=== PATIENT | male | born 1960 | race Caucasian/White ===

== ENCOUNTER 2021-01-17 01:38 | Day surgery (SDC) | payer BC, SELFPAY ==
[2021-01-04 14:59] VITALS: BMI 33.7
[2021-01-17 10:20] VITALS: BP 105/79; PULSE 61; RESP 16; TEMP 36.4; O2SAT 96; BMI 33.3
[2021-01-17] MEDS: LACTATED RINGERS 1,000 ML 150 ML IV CONT (10:33)
--- NOTE | 2021-01-17 11:09 | WPDANESEPPF ---
Anes - Initial Pre Proc Eval Procedure: Operation Date: 01/17/21 11:30 Proposed Procedures p Screening Colonoscopy - Edis Carpio MD Date/Time: 01/17/21 11:09 Surgeon: Edis Carpio MD Pre Op Diagnosis: neoplasm screening, family hx of colon polyps Patient Data Age: 60 Gender: M Height: 1.68 m Weight: 93.7 kg Last Vital Signs Temp 36.4 C 01/17/21 10:20 Pulse 61 01/17/21 10:20 Resp 16 01/17/21 10:20 BP 105/79 01/17/21 10:20 Pulse Ox 96 01/17/21 10:20 Allergies Allergy/AdvReac Type Severity Reaction Status Date / Time No Known Drug Allergies Allergy Unknown Unknown Verified 01/17/21 10:19 Home Medications Medication Instructions Recorded Confirmed Type lisinopril 40 mg tablet 40 mg PO DAILY #90 tablet 12/20/20 01/17/21 Rx amlodipine 5 mg PO DAILY 01/04/21 01/17/21 History atorvastatin 10 mg PO DAILY 01/04/21 01/17/21 History Patient hx anesthesia problems: none Family hx anesthesia problems: none PMFSH Past Medical History Medical History (Updated 01/16/21 @ 14:24 by Andres Flannery DO) Essential (primary) hypertension Hyperlipidemia Surgical History Surgical History H/O colonoscopy (~12/2011) Family History Family History Mother Family history of lung cancer Patient's mother is , Onset Age: 58 Father Family history of congestive heart failure Family history of cardiovascular disease Social History Social History Smoking packs per day: 1 Smoking cigarettes per day: 20.0 Years smoked: 5 Smoking pack-years: 5.00 Smoking status: Former smoker Tobacco type: cigarettes Smoking end date: 07/08/86 Alcohol intake: current Drinks per week: 6 Substance use: current Substance use type: marijuana Other substance usage details: eatables Last use: 01/01/2021 Living arrangements: with family Spiritual care concerns: No Anes - Eval Final PreProcedure Day of Procedure 07/13/21 11:09 Patient weight: obese Heart: regular rate and rhythm Lungs: clear to auscultation and normal air movement Airway: Mallampati scale class II Neurological: alert and oriented Last oral intake: >/= 8 hours ASA classification: III Emergent: no Anesthetic plan: proceed Anesthesia type and monitoring: general GIVS and standard monitoring Informed Consent: The patient's anesthetic plan and its attendant risks and benefits were discussed with the patient/family/POA. Questions were solicited and answers provided to the satisfaction of the patient/family/POA.
--- NOTE | 2021-01-17 11:18 | WPDGICN ---
Assessment and Plan Assessment and plan (1) Family history of colonic polyps: Code(s): Z83.71 - Family history of colonic polyps Status: Acute Assessment and Plan: Patient presents for screening colonoscopy. Family history is significant as father has had colon polyps. Further recommendations will be given after endoscopy. GI Consult Note Consult date/time: 01/17/21 11:18 HPI: Giovani Seo is a 60 year old male presents for neoplasia screening. Patient reports that his current weight appetite bowel movements are normal. He denies abdominal pain. He has had no bleeding. Family history is significant that his father has had colon polyps. Patient reports that his last colonoscopy was approximately 9 or 10 years ago in 2011. He presents today for follow-up colonoscopy. Review of Systems Review of Systems: All systems reviewed & are unremarkable except as noted in HPI and below PMFSH Past Medical History Medical History (Updated 01/17/21 @ 11:20 by Edis Carpio MD) Essential (primary) hypertension Hyperlipidemia Surgical History Surgical History H/O colonoscopy (~12/2011) Family History Family History Mother Family history of lung cancer Patient's mother is , Onset Age: 58 Father Family history of congestive heart failure Family history of cardiovascular disease Social History Social History Smoking packs per day: 1 Smoking cigarettes per day: 20.0 Years smoked: 5 Smoking pack-years: 5.00 Smoking status: Former smoker Tobacco type: cigarettes Smoking end date: 07/08/86 Alcohol intake: current Drinks per week: 6 Substance use: current Substance use type: marijuana Other substance usage details: eatables Last use: 01/01/2021 Living arrangements: with family Spiritual care concerns: No Meds Home Medications and Allergies Home Medications Medication Instructions Recorded Confirmed Type lisinopril 40 mg tablet 40 mg PO DAILY #90 tablet 12/20/20 01/17/21 Rx amlodipine 5 mg PO DAILY 01/04/21 01/17/21 History atorvastatin 10 mg PO DAILY 01/04/21 01/17/21 History Allergies Allergy/AdvReac Type Severity Reaction Status Date / Time No Known Drug Allergies Allergy Unknown Unknown Verified 01/17/21 10:19 Vital Signs Vital Signs - 24 hr 01/17/21 10:20 Temperature 97.6 F Pulse Rate 61 Respiratory Rate 16 Blood Pressure 105/79 Pulse Oximetry 96 Exam Narrative: Exam Narrative: Physical exam reveals patient be alert. Vital signs stable. HEENT exam is unremarkable. Patient is anicteric. Lungs are clear to auscultation and percussion. Heart is without murmur or extra sounds. Abdominal exam bowel sounds are present soft nontender with no organomegaly. Digital external rectal exam is normal.
[2021-01-17 12:13] VITALS: BP 90/57; PULSE 48; RESP 16; O2SAT 97
[2021-01-17 12:23] VITALS: BP 93/63; PULSE 47; RESP 16; O2SAT 96
[2021-01-17 12:33] VITALS: BP 114/83; PULSE 46; RESP 15; O2SAT 99
== END 2021-01-17 12:43 | disposition home or self-care (01) ==
PROVIDERS: PCP Family Medicine; Visit Provider Internal Medicine Gastroenterology
PROC: 0DJD8ZZ Inspection of Lower Intestinal Tract, Via Natural or Artificial Opening Endoscopic (ICD-10-PCS; CPT 45378; principal; 2021-01-17 11:30)
DX: Z12.11 Encounter for screening for malignant neoplasm of colon (principal); Z83.71 Family history of colonic polyps; K57.30 Diverticulosis of large intestine without perforation or abscess without bleeding; I10 Essential (primary) hypertension; E78.5 Hyperlipidemia, unspecified; Z87.891 Personal history of nicotine dependence; F12.90 Cannabis use, unspecified, uncomplicated; E66.9 Obesity, unspecified; Z68.33 Body mass index [BMI] 33.0-33.9, adult
CPT/HCPCS: 45378; J2704; J7120

== ENCOUNTER 2022-02-19 15:47 | Outpatient (CLI) | payer OTHER, SELFPAY ==
--- NOTE | 2022-02-19 16:03 | ECG_ITS ---
Measurements Intervals Gaffney Rate: 56 P: 40 ND: 152 QRS: 59 QRSD: 81 T: 35 QT: 389 QTc: 376 Interpretive Statements SINUS BRADYCARDIA OTHERWISE NORMAL ECG NO PREVIOUS ECG AVAILABLE FOR COMPARISON Electronically Signed On 02-20-2022 8:46:08 CDT by Ashok Quezada M.D.
[2022-02-19 16:04] LABS: Hemoglobin 14.1 g/dL (14.0-18.0); Mean Corpuscular HGB Conc 35.3 g/dl (32-36); Mean Corpuscular Hemoglobin 30.5 pg (26-34); Mean Corpuscular Volume 86.4 fl (80-100); Mean Platelet Volume 9.1 fl (7.4-10.4); Platelet Count Result 213 k/mm3 (150-375); Red Blood Count 4.63 M/mm3 (4.6-6.20); Red Cell Distribution Width 12.6 % (11.5-14.5); White Blood Count 6.9 K/mm3 (4.5-10.0)
[2022-02-19 16:31] LABS: Appearance Urine Clear (Clear); Bilirubin Urine Negative (Negative); Color Urine Yellow (Yellow); Glucose Urine UA Negative (Negative); Ketones Urine Negative (Negative); Leukocyte Esterase Ur Negative LEU/UL (NEGATIVE); Nitrate Urine Negative (Negative); Protein Urine Negative (Negative); Specific Grav Ur 1.015 (1.001-1.035); Urobilinogen Urine 0.2 mg/dL (<2.0); pH Urine 6.5 (5.0-9.0)
[2022-02-19 16:38] LABS: Add Urine Microscopic? YES; Bacteria Urine Trace /hpf; Blood Urine Trace-Intact (Negative); WBC Urine 0-3 /hpf (0-3)
[2022-02-19 16:51] LABS: Alanine Aminotransferase 24 U/L (6-50); Albumin Level 4.9 g/dL (3.5-5.1); Alkaline Phosphatase 62 U/L (38-126); Anion Gap 11 mmol/L (8-16); Aspartate Amino Transferase 31 U/L (17-59); Bilirubin,Total 0.9 mg/dL (0.2-1.3); Blood Urea Nitrogen 15 mg/dL (9-20); Calcium 8.9 mg/dL (8.4-10.2); Carbon Dioxide 24 mmol/L (22-30); Chloride 93 mmol/L (98-107); Cholesterol 162 mg/dL (0-200); Estimated Glomerular Filt Rate > 60; Glucose 104 mg/dL (65-110); HDL Direct 69 mg/dL; Potassium 4.3 mmol/L (3.4-5.0); Sodium 128 mmol/L (137-145); Triglycerides 122 mg/dL (<150)
[2022-02-19 17:02] LABS: LDL Cholesterol Direct 53 mg/dL
== END 2022-02-19 15:48 | disposition home or self-care (01) ==
LOC: ANHLAB 15:48
PROVIDERS: PCP Family Medicine; Visit Provider Family Medicine
DX: E78.00 Pure hypercholesterolemia, unspecified (principal); Z01.818 Encounter for other preprocedural examination; E87.1 Hypo-osmolality and hyponatremia; I10 Essential (primary) hypertension; Z79.899 Other long term (current) drug therapy
CPT/HCPCS: 36415; 80053; 80061; 81001; 85027; 93005

== ENCOUNTER 2022-08-07 08:05 | Outpatient (CLI) | payer OTHER, SELFPAY ==
[2022-08-07 19:40] LABS: Hematocrit 28.4 % (42.0-52.0); Hemoglobin 13.7 g/dL (14.0-18.0); Mean Corpuscular HGB Conc 48.2 g/dl (32-36); Mean Corpuscular Hemoglobin 45.8 pg (26-34); Mean Platelet Volume 9.6 fl (7.4-10.4); Platelet Count Result 285 k/mm3 (150-375); Red Blood Count 2.99 M/mm3 (4.6-6.20); Red Cell Distribution Width 14.8 % (11.5-14.5); White Blood Count 6.3 K/mm3 (4.5-10.0)
[2022-08-07 19:45] LABS: Alanine Aminotransferase 23 U/L (6-50); Albumin Level 4.4 g/dL (3.5-5.1); Alkaline Phosphatase 81 U/L (38-126); Anion Gap 9 mmol/L (8-16); Aspartate Amino Transferase 35 U/L (17-59); Blood Urea Nitrogen 19 mg/dL (9-20); Calcium 9.6 mg/dL (8.4-10.2); Carbon Dioxide 29 mmol/L (22-30); Chloride 93 mmol/L (98-107); Cholesterol 160 mg/dL (0-200); Estimated Glomerular Filt Rate > 60; Glucose 71 mg/dL (65-110); HDL Direct 54 mg/dL; Potassium 4.5 mmol/L (3.4-5.0); Sodium 131 mmol/L (137-145); Triglycerides 119 mg/dL (<150)
[2022-08-07 19:56] LABS: LDL Cholesterol Direct 66 mg/dL
[2022-08-07 20:13] LABS: Free T4 Free Thyroxine 1.39 ng/mL (0.78-2.19)
[2022-08-07 20:14] LABS: Prostate Specific Antigen 0.8 ng/mL (< OR = 4.0)
== END 2022-08-07 08:06 | disposition home or self-care (01) ==
LOC: ANHGOSHLAB 08:07
PROVIDERS: PCP Family Medicine; Visit Provider Family Medicine
DX: Z51.81 Encounter for therapeutic drug level monitoring (principal); Z79.899 Other long term (current) drug therapy; I10 Essential (primary) hypertension; E78.00 Pure hypercholesterolemia, unspecified; Z12.5 Encounter for screening for malignant neoplasm of prostate
CPT/HCPCS: 36415; 80053; 80061; 84153; 84439; 84443; 85027; G0103

== ENCOUNTER 2022-08-29 08:19 | Outpatient (CLI) | payer OTHER, SELFPAY ==
[2022-08-29 18:50] LABS: Iron 79 ug/dL (49-181)
[2022-08-29 19:00] LABS: Percent Iron Saturation 26 % (20-50)
[2022-08-29 19:03] LABS: Basophils Absolute Auto 0.1 K/mm3 (0.0-0.1); Basophils Percent Auto 0.9 % (0.2-1.2); Eosinophils Absolute Auto 0.2 K/mm3 (0-0.3); Eosinophils Percent Auto 3.8 % (0-4.4); Hematocrit 30.4 % (42.0-52.0); Hemoglobin 13.9 g/dL (14.0-18.0); Immature Granulocyte Absolute 0.01 K/mm3 (0.00-0.031); Immature Granulocyte Percent A 0.2 % (0-0.5); Lymphocytes Absolute Auto 1.51 K/mm3 (0.9-3.2); Lymphocytes Percent Auto 26.1 % (18.3-44.2); Mean Corpuscular HGB Conc 45.7 g/dl (32-36); Mean Corpuscular Hemoglobin 42.4 pg (26-34); Mean Corpuscular Volume 92.7 fl (80-100); Mean Platelet Volume 9.8 fl (7.4-10.4); Monocytes Absolute Auto 0.6 K/mm3 (0.1-0.6); Monocytes Percent Auto 9.7 % (2.6-8.5); Neutrophils Absolute Auto 3.4 K/mm3 (1.3-6.7); Neutrophils Percent Auto 59.3 % (45.5-73.1); Platelet Count Result 266 k/mm3 (150-375); Red Blood Count 3.28 M/mm3 (4.6-6.20); Red Cell Distribution Width 15.1 % (11.5-14.5); White Blood Count 5.8 K/mm3 (4.5-10.0)
== END 2022-08-29 08:20 | disposition home or self-care (01) ==
LOC: ANHGOSHLAB 08:20
PROVIDERS: PCP Family Medicine; Visit Provider Nurse Practitioner
DX: R79.89 Other specified abnormal findings of blood chemistry (principal); E61.1 Iron deficiency
CPT/HCPCS: 36415; 83540; 83550; 85025

== ENCOUNTER 2023-01-24 07:55 | Outpatient (CLI) | payer OTHER, SELFPAY ==
[2023-01-24 13:28] LABS: Hematocrit 27.9 % (42.0-52.0); Hemoglobin 14.6 g/dL (14.0-18.0); Mean Corpuscular HGB Conc 52.3 g/dl (32-36); Mean Corpuscular Hemoglobin 48.8 pg (26-34); Mean Corpuscular Volume 93.3 fl (80-100); Mean Platelet Volume 10.6 fl (7.4-10.4); Platelet Count Result 216 k/mm3 (150-375); Red Blood Count 2.99 M/mm3 (4.6-6.20); Red Cell Distribution Width 13.8 % (11.5-14.5); White Blood Count 5.3 K/mm3 (4.5-10.0)
[2023-01-24 14:10] LABS: Alanine Aminotransferase 27 U/L (6-50); Albumin Level 4.7 g/dL (3.5-5.1); Alkaline Phosphatase 70 U/L (38-126); Anion Gap 8 mmol/L (8-16); Aspartate Amino Transferase 39 U/L (17-59); Bilirubin,Total 1.5 mg/dL (0.2-1.3); Blood Urea Nitrogen 20 mg/dL (9-20); Calcium 9.3 mg/dL (8.4-10.2); Carbon Dioxide 26 mmol/L (22-30); Chloride 98 mmol/L (98-107); Cholesterol 153 mg/dL (0-200); Estimated Glomerular Filt Rate > 60; Glucose 90 mg/dL (65-110); HDL Direct 57 mg/dL; Potassium 4.2 mmol/L (3.4-5.0); Sodium 132 mmol/L (137-145); Triglycerides 93 mg/dL (<150)
[2023-01-24 14:34] LABS: LDL Cholesterol Direct 57 mg/dL
[2023-01-24 14:36] LABS: Free T4 Free Thyroxine 1.52 ng/mL (0.78-2.19)
[2023-01-24 14:41] LABS: Prostate Specific Antigen 0.7 ng/mL (< OR = 4.0)
== END 2023-01-24 07:56 | disposition home or self-care (01) ==
LOC: ANHGOSHLAB 07:58
PROVIDERS: PCP Family Medicine; Visit Provider Family Medicine
DX: E66.9 Obesity, unspecified (principal); E78.00 Pure hypercholesterolemia, unspecified; I10 Essential (primary) hypertension; Z12.5 Encounter for screening for malignant neoplasm of prostate; Z79.899 Other long term (current) drug therapy
CPT/HCPCS: 36415; 80053; 80061; 84153; 84439; 84443; 85027; G0103

== ENCOUNTER 2023-02-05 08:10 | Outpatient (CLI) | payer OTHER, SELFPAY ==
[2023-02-05 18:40] LABS: Hemoglobin 14.7 g/dL (14.0-18.0); Immature Reticulocyte Fraction 5.7 % (3.0-15.9); Mean Corpuscular HGB Conc 34.2 g/dl (32-36); Mean Corpuscular Hemoglobin 31.1 pg (26-34); Mean Corpuscular Volume 91.1 fl (80-100); Mean Platelet Volume 10.4 fl (7.4-10.4); Platelet Count Result 258 k/mm3 (150-375); Red Blood Count 4.72 M/mm3 (4.6-6.20); Red Cell Distribution Width 13.1 % (11.5-14.5); Reticulocyte Hemoglobin Conten 35.3 pg (28.2-35.7); Reticulocyte Percent 1.11 % (0.7-4.3); Reticulocytes Absolute 0.05 M/mm3 (0.02-0.1); White Blood Count 6.5 K/mm3 (4.5-10.0)
[2023-02-05 18:46] LABS: Alanine Aminotransferase 28 U/L (6-50); Albumin Level 4.8 g/dL (3.5-5.1); Alkaline Phosphatase 74 U/L (38-126); Anion Gap 11 mmol/L (8-16); Aspartate Amino Transferase 45 U/L (17-59); Bilirubin Indirect 1.3 mg/dL (0-1.1); Bilirubin,Total 1.4 mg/dL (0.2-1.3); Blood Urea Nitrogen 22 mg/dL (9-20); CRP 0.7 mg/dL (<1.0); Calcium 9.5 mg/dL (8.4-10.2); Carbon Dioxide 27 mmol/L (22-30); Chloride 94 mmol/L (98-107); Cholesterol 179 mg/dL (0-200); Estimated Glomerular Filt Rate > 60; Glucose 92 mg/dL (65-110); HDL Direct 64 mg/dL; Lactate Dehydrogenase 199 U/L (120-246); Potassium 4.6 mmol/L (3.4-5.0); Sodium 132 mmol/L (137-145); Triglycerides 106 mg/dL (<150)
[2023-02-05 18:56] LABS: LDL Cholesterol Direct 76 mg/dL
[2023-02-05 19:10] LABS: Erythrocyte Sedimentation Rate 9 mm/hr (0-20); Iron 139 ug/dL (49-181)
[2023-02-05 19:22] LABS: Percent Iron Saturation 44 % (20-50)
[2023-02-09 08:53] LABS: Haptoglobin 177 mg/dL (43-212)
== END 2023-02-05 08:11 | disposition home or self-care (01) ==
LOC: ANHGOSHLAB 08:13
PROVIDERS: PCP Family Medicine; Visit Provider Family Medicine
DX: D64.9 Anemia, unspecified (principal); R17 Unspecified jaundice; R79.89 Other specified abnormal findings of blood chemistry; Z79.899 Other long term (current) drug therapy; E66.9 Obesity, unspecified; E78.00 Pure hypercholesterolemia, unspecified; I10 Essential (primary) hypertension
CPT/HCPCS: 36415; 80053; 80061; 82248; 82728; 83010; 83540; 83550; 83615; 84443; 85027; 85046; 85652; 86140; 86880

== ENCOUNTER 2023-07-30 08:17 | Outpatient (CLI) | payer OTHER, SELFPAY ==
[2023-07-30 14:22] LABS: Hematocrit 42.9 % (42.0-52.0); Hemoglobin 14.3 g/dL (14.0-18.0); Mean Corpuscular HGB Conc 33.3 g/dl (32-36); Mean Corpuscular Hemoglobin 31.1 pg (26-34); Mean Corpuscular Volume 93.3 fl (80-100); Mean Platelet Volume 10.2 fl (7.4-10.4); Platelet Count Result 234 k/mm3 (150-375); Red Cell Distribution Width 12.8 % (11.5-14.5); White Blood Count 6.3 K/mm3 (4.5-10.0)
[2023-07-30 14:56] LABS: Alanine Aminotransferase 25 U/L (6-50); Albumin Level 4.8 g/dL (3.5-5.1); Alkaline Phosphatase 66 U/L (38-126); Anion Gap 12 mmol/L (8-16); Aspartate Amino Transferase 48 U/L (17-59); Bilirubin,Total 1.4 mg/dL (0.2-1.3); Blood Urea Nitrogen 15 mg/dL (9-20); Calcium 9.5 mg/dL (8.4-10.2); Carbon Dioxide 26 mmol/L (22-30); Chloride 95 mmol/L (98-107); Cholesterol 164 mg/dL (0-200); Estimated Glomerular Filt Rate > 60; Glucose 74 mg/dL (65-110); HDL Direct 72 mg/dL; Potassium 4.2 mmol/L (3.4-5.0); Sodium 133 mmol/L (137-145); Triglycerides 74 mg/dL (<150)
[2023-07-30 15:07] LABS: LDL Cholesterol Direct 71 mg/dL
== END 2023-07-30 08:18 | disposition home or self-care (01) ==
LOC: ANHGOSHLAB 08:20
PROVIDERS: PCP Family Medicine; Visit Provider Family Medicine
DX: D64.9 Anemia, unspecified (principal); I10 Essential (primary) hypertension; E66.9 Obesity, unspecified; Z79.899 Other long term (current) drug therapy; E78.00 Pure hypercholesterolemia, unspecified
CPT/HCPCS: 36415; 80053; 80061; 84443; 85027

== ENCOUNTER 2023-08-15 08:44 | Outpatient (CLI) | payer OTHER, SELFPAY ==
--- NOTE | ~2023-08-15 | US_ITS ---
EXAMINATION: US right upper quadrant DATE: 08/15/2023 08:59 INDICATION: Abnormal liver enzymes TECHNIQUE: Multiple grayscale and Doppler ultrasound images of the abdomen were obtained. COMPARISON: 08/14/2013 FINDINGS: The head and body of the pancreas are normal. The pancreatic tail is obscured by bowel gas. The liver is normal with normal echogenicity and echotexture. No surface nodularity. Normal hepatope mragarita flow in the main portal vein. The gallbladder is normal with no abnormal wall thickening, pericho lecystic fluid or stones. The normal common bile duct measures 3 mm. There was no sonographic Darling sign. IMPRESSION: 1. No sonographic correlate for the patient's symptoms. Reviewed, dictated and finalized at location L. STANT FINANCE DIRECTOR
== END 2023-08-15 08:45 ==
LOC: MICIMG 08:44
PROVIDERS: PCP Family Medicine; Visit Provider Family Medicine
DX: R74.8 Abnormal levels of other serum enzymes (principal); R17 Unspecified jaundice
CPT/HCPCS: 76705

== ENCOUNTER 2023-11-13 14:30 | Outpatient (CLI) | payer OTHER, SELFPAY ==
--- NOTE | ~2023-11-13 | XR_ITS ---
EXAMINATION: XR chest 2V DATE: 11/13/2023 14:57 INDICATION: Wheezing TECHNIQUE: frontal and lateral views of the chest were obtained. COMPARISON: None FINDINGS: The lungs are clear with no focal airspace opacities, pulmonary edema, pleural effusion or pneumothor ax. The cardiomediastinal silhouette is normal. Mild thoracic spondylosis. IMPRESSION: 1. No acute cardiopulmonary disease. Reviewed, dictated and finalized at location A.
== END 2023-11-13 14:31 ==
PROVIDERS: PCP Family Medicine; Visit Provider Emergency Medicine
DX: R06.2 Wheezing (principal); J20.9 Acute bronchitis, unspecified
CPT/HCPCS: 71046

== ENCOUNTER 2023-12-02 10:46 | Emergency (ER) | payer OTHER, SELFPAY ==
--- NOTE | ~2023-12-02 | US_ITS ---
EXAMINATION: US venous doppler LE RT DATE: 12/02/2023 13:45 INDICATION: Right lower limb pain. TECHNIQUE: Grayscale ultrasound images without and with compression and Doppler ultrasound images of the right lower extremity veins were obtained. COMPARISON: None. FINDINGS: The visualized portions of right common femoral vein, profunda (deep) femoral vein, femoral vein, pop liteal vein, peroneal veins, posterior tibial veins, and greater saphenous vein outflow are patent. T here is a small Jamison's cyst. IMPRESSION: 1. No deep venous thrombosis. 2. Small Jamison's cyst. Reviewed, dictated and finalized at location E.
[2023-12-02 11:07] VITALS: BP 135/78; PULSE 67; RESP 16; TEMP 36.7; O2SAT 100
--- NOTE | 2023-12-02 13:19 | ED.EXTPRO ---
HPI - Extremity Problem General Chief complaint: Extremity Problem,Nontraumatic Stated complaint: R leg swelling Time Seen by Provider: 12/02/23 12:15 Source: patient Mode of arrival: ambulatory Limitations: no limitations History of Present Illness HPI Narrative: This is a 63-year-old male who presents to the ED with chief complaint of right ankle swelling and calf pain onset today. Patient reports that he and his been moving and he has been going up and down stairs constantly for the past few days. Does not note any specific trauma or injury or fall. Reports that he has had multiple knee surgeries but the last being several years ago. No recent procedures or hospitalizations. Denies fevers, chills, warmth, rash, numbness, weakness. Related Data Allergies Allergy/AdvReac Type Severity Reaction Status Date / Time No Known Drug Allergies Allergy Unknown Unknown Verified 12/02/23 11:11 Review of Systems Review of Systems: All systems as dictated in HPI PMFSH Past Medical History Medical History Essential (primary) hypertension Hepatitis C antibody test negative (12/27/16) Hyperlipidemia Surgical History Surgical History H/O colonoscopy (~12/2011) Total knee replacement status Family History Family History Mother Family history of lung cancer Patient's mother is , Onset Age: 58 Father Family history of congestive heart failure Family history of cardiovascular disease Social History Social History Smoking packs per day: 1 Smoking cigarettes per day: 20.0 Years smoked: 5 Smoking pack-years: 5.00 Smoking status: Never smoker Tobacco type: cigarettes Smoking end date: 07/08/86 Alcohol intake: current Drinks per week: 6 Substance use: current Substance use type: marijuana Other substance usage details: eatables Last use: 01/01/2021 Lack of Transportation: No Lack of Food: Never True Current Housing: I Have Housing Concerned About Future Housing: No Difficulty Paying Gas/Electric Bills: No Difficulty Paying for Meds: No Currently Unemployed: No Education: Master's Degree or Higher Living arrangements: with family Spiritual care concerns: No Exam Narrative: GENERAL: Well-appearing, well-nourished, and in no acute distress. HEAD: Normocephalic, atraumatic. EYES: PERRLA and EOMI. ENT: Nares clear, no rhinorrhea or epistaxis. Mucous membranes moist. Oropharynx without tonsillar hypertrophy exudate or other lesions. NECK: Supple. No adenopathy or masses. CHEST: No respiratory distress. Clear to auscultation. No wheezes rales or rhonchi HEART: Regular rate and rhythm. No murmur heard. Normal peripheral pulses. ABDOMEN: Soft, nontender, nondistended, normal active bowel sounds. MSK: Mild nonpitting edema noted to the right ankle. Minimal tenderness throughout the right ankle, posterior right leg. Left lower extremity benign SKIN: Warm, dry, no rash. NEURO: Alert and oriented x3. No focal deficits. PSYCH: Normal mood and affect. Course Vital Signs Vital signs: Vital Signs Temperature 98.1 F 12/02/23 11:07 Pulse Rate 67 12/02/23 11:07 Respiratory Rate 16 12/02/23 11:07 Blood Pressure 135/78 12/02/23 11:07 Pulse Oximetry 100 12/02/23 11:07 Oxygen Delivery Room Air 12/02/23 11:07 Temperature 98.1 F 12/02/23 11:07 Pulse Rate 67 12/02/23 11:07 Respiratory Rate 16 12/02/23 11:07 Blood Pressure 135/78 12/02/23 11:07 Pulse Oximetry 100 12/02/23 11:07 Oxygen Delivery Room Air 12/02/23 11:07 MDM - Extremity (Nontraumatic) MDM Narrative Medical decision making narrative: This is a 63-year-old male who presents to the ED with chief complaint of right lower extremity pa
[2023-12-02 13:28] LABS: Basophils Percent Auto 0.6 % (0.2-1.2); Eosinophils Absolute Auto 0.1 K/mm3 (0-0.3); Eosinophils Percent Auto 0.9 % (0-4.4); Hematocrit 42.4 % (42.0-52.0); Hemoglobin 14.3 g/dL (14.0-18.0); Immature Granulocyte Absolute 0.02 K/mm3 (0.00-0.031); Immature Granulocyte Percent A 0.3 % (0-0.5); Lymphocytes Absolute Auto 1.38 K/mm3 (0.9-3.2); Lymphocytes Percent Auto 20.4 % (18.3-44.2); Mean Corpuscular HGB Conc 33.7 g/dl (32-36); Mean Corpuscular Hemoglobin 31.2 pg (26-34); Mean Corpuscular Volume 92.6 fl (80-100); Mean Platelet Volume 9.3 fl (7.4-10.4); Monocytes Absolute Auto 0.6 K/mm3 (0.1-0.6); Monocytes Percent Auto 9.3 % (2.6-8.5); Neutrophils Absolute Auto 4.6 K/mm3 (1.3-6.7); Neutrophils Percent Auto 68.5 % (45.5-73.1); Platelet Count Result 244 k/mm3 (150-375); Red Blood Count 4.58 M/mm3 (4.6-6.20); Red Cell Distribution Width 12.8 % (11.5-14.5); White Blood Count 6.8 K/mm3 (4.5-10.0)
[2023-12-02 13:39] LABS: Alanine Aminotransferase 25 U/L (6-50); Albumin Level 4.7 g/dL (3.5-5.1); Alkaline Phosphatase 76 U/L (38-126); Anion Gap 6 mmol/L (4-12); Aspartate Amino Transferase 38 U/L (17-59); Bilirubin,Total 1.3 mg/dL (0.2-1.3); Blood Urea Nitrogen 18 mg/dL (9-20); Calcium 9.3 mg/dL (8.4-10.2); Carbon Dioxide 29 mmol/L (22-30); Chloride 100 mmol/L (98-107); Estimated CRCL calculation 79 ml/min; Estimated Glomerular Filt Rate > 60; Glucose 100 mg/dL (65-110); Potassium 4.3 mmol/L (3.4-5.0); Sodium 135 mmol/L (137-145)
[2023-12-02 13:48] LABS: Partial Thromboplastin Time 31.4 Seconds (22.3-36.8)
[2023-12-02 13:57] LABS: D Dimer 3.45 ug/mL (<0.48)
== END 2023-12-02 14:19 | disposition home or self-care (01) ==
PROVIDERS: Emergency Provider Physician Assistant; PCP Family Medicine
DX: M71.21 Synovial cyst of popliteal space [Baker], right knee (principal); E78.5 Hyperlipidemia, unspecified; I10 Essential (primary) hypertension; Z96.659 Presence of unspecified artificial knee joint; Z87.891 Personal history of nicotine dependence
CPT/HCPCS: 36415; 80053; 85025; 85380; 85610; 85730; 93971; 99284

== ENCOUNTER 2023-12-17 08:25 | Outpatient (CLI) | payer OTHER, SELFPAY ==
[2023-12-17 13:03] LABS: Hematocrit 41.5 % (42.0-52.0); Hemoglobin 14.3 g/dL (14.0-18.0); Mean Corpuscular HGB Conc 34.5 g/dl (32-36); Mean Corpuscular Hemoglobin 32.6 pg (26-34); Mean Corpuscular Volume 94.5 fl (80-100); Mean Platelet Volume 10.1 fl (7.4-10.4); Platelet Count Result 263 k/mm3 (150-375); Red Blood Count 4.39 M/mm3 (4.6-6.20); Red Cell Distribution Width 12.8 % (11.5-14.5); White Blood Count 6.3 K/mm3 (4.5-10.0)
[2023-12-17 13:18] LABS: Alanine Aminotransferase 56 U/L (6-50); Albumin Level 4.8 g/dL (3.5-5.1); Alkaline Phosphatase 79 U/L (38-126); Anion Gap 10 mmol/L (4-12); Aspartate Amino Transferase 71 U/L (17-59); Bilirubin,Total 1.2 mg/dL (0.2-1.3); Blood Urea Nitrogen 21 mg/dL (9-20); Calcium 9.3 mg/dL (8.4-10.2); Carbon Dioxide 26 mmol/L (22-30); Chloride 96 mmol/L (98-107); Cholesterol 172 mg/dL (0-200); Estimated Glomerular Filt Rate > 60; Glucose 100 mg/dL (65-110); HDL Direct 88 mg/dL; Potassium 4.1 mmol/L (3.4-5.0); Sodium 132 mmol/L (137-145); Triglycerides 56 mg/dL (<150)
[2023-12-17 13:30] LABS: LDL Cholesterol Direct 66 mg/dL
== END 2023-12-17 08:26 | disposition home or self-care (01) ==
LOC: ANHGOSHLAB 08:27
PROVIDERS: PCP Family Medicine; Visit Provider Family Medicine
DX: R74.8 Abnormal levels of other serum enzymes (principal); D64.9 Anemia, unspecified; E22.2 Syndrome of inappropriate secretion of antidiuretic hormone; I10 Essential (primary) hypertension; Z79.899 Other long term (current) drug therapy; E66.9 Obesity, unspecified; E78.00 Pure hypercholesterolemia, unspecified
CPT/HCPCS: 36415; 80053; 80061; 84443; 85027

== ENCOUNTER 2024-04-15 08:03 | Outpatient (CLI) | payer OTHER, SELFPAY ==
[2024-04-15 16:52] LABS: Hematocrit 28.5 % (42.0-52.0); Hemoglobin 14.8 g/dL (14.0-18.0); Mean Corpuscular HGB Conc 51.9 g/dl (32-36); Mean Corpuscular Volume 96.3 fl (80-100); Mean Platelet Volume 10.5 fl (7.4-10.4); Platelet Count Result 208 k/mm3 (150-375); Red Blood Count 2.96 M/mm3 (4.6-6.20); Red Cell Distribution Width 13.3 % (11.5-14.5)
[2024-04-15 16:59] LABS: Alanine Aminotransferase 24 U/L (6-50); Albumin Level 4.8 g/dL (3.5-5.1); Alkaline Phosphatase 66 U/L (38-126); Anion Gap 12 mmol/L (4-12); Aspartate Amino Transferase 43 U/L (17-59); Bilirubin,Total 1.5 mg/dL (0.2-1.3); Blood Urea Nitrogen 21 mg/dL (9-20); Calcium 9.6 mg/dL (8.4-10.2); Carbon Dioxide 25 mmol/L (22-30); Chloride 96 mmol/L (98-107); Cholesterol 182 mg/dL (0-200); Estimated Glomerular Filt Rate > 60; Glucose 81 mg/dL (65-110); HDL Direct 82 mg/dL; Potassium 4.2 mmol/L (3.4-5.0); Sodium 133 mmol/L (137-145); Triglycerides 78 mg/dL (<150)
[2024-04-15 17:13] LABS: LDL Cholesterol Direct 71 mg/dL
== END 2024-04-15 08:04 | disposition home or self-care (01) ==
LOC: ANHGOSHLAB 08:04
PROVIDERS: PCP Family Medicine; Visit Provider Family Medicine
DX: D64.9 Anemia, unspecified (principal); E66.9 Obesity, unspecified; E78.00 Pure hypercholesterolemia, unspecified; I10 Essential (primary) hypertension; R74.8 Abnormal levels of other serum enzymes; Z79.899 Other long term (current) drug therapy; Z12.5 Encounter for screening for malignant neoplasm of prostate
CPT/HCPCS: 36415; 80053; 80061; 84153; 84443; 85027; G0103

== ENCOUNTER 2024-04-29 08:17 | Outpatient (CLI) | payer OTHER, SELFPAY ==
[2024-04-29 13:04] LABS: Hematocrit 40.9 % (42.0-52.0); Hemoglobin 14.5 g/dL (14.0-18.0); Mean Corpuscular HGB Conc 35.5 g/dl (32-36); Mean Corpuscular Hemoglobin 33.6 pg (26-34); Mean Corpuscular Volume 94.9 fl (80-100); Mean Platelet Volume 10.5 fl (7.4-10.4); Platelet Count Result 231 k/mm3 (150-375); Red Blood Count 4.31 M/mm3 (4.6-6.20); White Blood Count 5.2 K/mm3 (4.5-10.0)
== END 2024-04-29 08:18 | disposition home or self-care (01) ==
LOC: ANHGOSHLAB 08:18
PROVIDERS: PCP Family Medicine; Visit Provider Nurse Practitioner
DX: D64.9 Anemia, unspecified (principal)
CPT/HCPCS: 36415; 85027

== ENCOUNTER 2024-05-27 15:50 | Outpatient (CLI) | payer OTHER, SELFPAY ==
--- NOTE | ~2024-05-27 | XR_ITS ---
EXAMINATION: XR thoracic spine 3V DATE: 05/27/2024 16:10 INDICATION: Left-sided back pain. TECHNIQUE: 3 views of thoracic spine were obtained. COMPARISON: None. FINDINGS: There is 7 degrees dextrocurvature of thoracic spine. Vertebral body heights are normal. Th ere is mildly decreased disc height at many levels in thoracic spine. There are endplate osteophytes at most levels. There is severe cervical spondylosis. IMPRESSION: 1. Mild thoracic spondylosis. Reviewed, dictated and finalized at location A. RVES CLERK
== END 2024-05-27 15:51 | disposition home or self-care (01) ==
LOC: GOSHIMG 15:51
PROVIDERS: PCP Family Medicine; Visit Provider Family Medicine
DX: M43.04 Spondylolysis, thoracic region (principal)
CPT/HCPCS: 72072

== ENCOUNTER 2024-11-17 08:33 | Outpatient (CLI) | payer OTHER, SELFPAY ==
--- OUTSIDE RECORDS SUMMARY | 2024-11-17 08:39 | XMS_ITS | Referral Summary ---
Author Organization [facility] Address [address] [place] [address] Care Team Providers Care Carbon Printer Name Role Phone Cara Cordoba DO Primary Care Provider [phone] Don Avila Unavailable [phone] Encounters Date Type Department Care Team Description 10/29/2024 Results [facility] [id number] [place] [phone] Joe Roper MD 10/28/2024 8:16 PM CDT - 10/28/2024 11:59 PM CDT Hospital Encounter [facility] [id number] [place] [id number] Chronic hyponatremia Discharge Disposition: Discharge to home or self care 10/28/2024 3:15 PM CDT Lab [facility] at [address] [phone] Class 1 obesity due to excess calories with serious comorbidity and body mass index (BMI) of 32.0 to 32.9 in adult (Primary Dx) from Last 3 Months Allergies No known active allergies Medications clobetasoL (TEMOVATE) 0.05 % ointmentIndicat ions:Hand eczema Apply topically 2 (two) times a day For thick scaly rash on hands 45 g 6 0 Active triamcinolone (KENALOG) 0.1 % cream 1. Ketoconazole 2% crm, mix w/ TMC apply to rash under armpits as needed, dsp 180gm (90d supply), 1 RF 2. TMC 0.1% crm, mix w/ Ketoconazole crm apply to rash under armpits as needed, dsp 180gm (90d supply) 1 RF 180 g 1 1 Active ketoconazole (NIZORAL) 2 % cream 1. Ketoconazole 2% cream, mix with TMC and apply to rash under arm pits as needed, dsp 180gm (90d supply), 1 RF 2. TMC 0.1% cream, mix with Ketoconazole cream and apply to rash under arm pits as needed, dsp 180 180 g 1 1 Active atorvastatin (LIPITOR) 10 mg tablet Take 1 tablet (10 mg total) by mouth daily 1 Active lisinopriL (PRINIVIL,ZESTR IL) 40 mg tablet Take 1 tablet (40 mg total) by mouth daily 1 Active amLODIPine (NORVASC) 5 mg tablet Take 1 tablet (5 mg total) by mouth daily 2 Active calcipotriene (DOVONOX) 0.005 % creamIndication s:Plaque Psoriasis Apply topically as needed Active fluorouraciL (EFUDEX) 5 % cream Apply topically as needed Active senna-docusate (PERICOLACE) 8.6-50 mg 1-2 times daily as needed for constipation 60 tablet 1 2 Active latanoprost (XALATAN) 0.005 % ophthalmic solution 4 Active amoxicillin (AMOXIL) 500 mg tablet/capsuleI ndications:S/P total knee arthroplasty, right Take 4 tablets by mouth 1 hour prior to dental procedure 4 tablet/capsu le 2 5 Active Active Problems Problem Noted Date Diagnosed Date Class 1 obesity due to exces s calories with serious comorbidity and body mass index (BMI) of 32.0 to 32.9 in adult 03/16/2024 Assessment & Plan (03/23/2024 2:41 PM CDT): Chronic, progressively improving but still above goal Encouraged to keep working on healthy lifestyle habits and include resistance training exercises Primary osteoarthritis of right knee 05/17/2022 Overview (05/17/2022): Added automatically from request for surgery [id number] Chronic hyponatremia 03/02/2022 Assessment & Plan (03/23/2024 2:41 PM CDT): Chronic hyponatremia since many years Stable, Asymptomatic Patient looks euvolemic Most likely suspect SIADH, - advised to limit total free water/ fluid intake per day to no more than 2 liter ( as pt exercising more ) - also strongly advised patient to cut back drinking beers on the weekend Recheck serum sodium levels - follow up on one year Assessment & Plan (11/05/2022 12:08 PM CDT): Chronic hyponatremia since many years Stable, Asymptomatic Patient looks euvolemic Most likely suspect SIADH -- reviewed recent lab results serum sodium levels, serum osmolarity, urine sodium, urine osmolarity - stable, - advised to limit total free water/ fluid intake per day to no more than 2 liter ( as pt exercising more ) - check serum sodium every 3 months - follow up on one year Assessment & Plan (05/11/2022 12:43 PM CDT): Chronic hyponatremia since many years Stable, Asymptomatic Patient looks euvolemic Most likely suspect SIADH - recheck serum sodium levels, serum osmolarity, urine sodium, urine osmolarity - advised to limit total fluid intake per day to no more than 1.5 liter Assessment & Plan (03/02/2022 11:41 AM CDT): Chronic hyponatremia since many years Stable Asymptomatic Patient looks euvolemic Most likely suspect SIADH - check serum sodium levels, serum osmolarity, urine sodium, urine osmolarity Check thyroid function test, baseline cortisol level - recent cholesterol levels and protein levels are normal - advised to limit total fluid intake per day to no more than 1.5 liter - further plans based on lab results - will reach out patient on Saturday Primary osteoarthritis of left knee 02/23/2022 Overview (02/23/2022): Added automatically from request for surgery [id number] Complex tear of medial menis cus of right knee as current injury 01/23/2018 Overview (01/23/2018): Added automatically from request for surgery [id number] Tear of medial meniscus of l eft knee, current, initial encounter 08/23/2017 Overview (08/23/2017): Added automatically from request for surgery [id number] Vitiligo 05/14/2017 Lentigo 02/28/2016 Referred otalgia 11/23/2011 Actinic keratosis 10/25/2010 Social History Tobacco Use Types Packs/Day Years Used Date Smoking Tobacco: Former Cigarettes Smokeless Tobacco: Never Tobacco Cessation:Counseling Given: Not Answered Alcohol Use Standard Drinks/Week Comments Yes 0 (1 standard drink = 0.6 oz pur e alcohol) AUDIT-C Answer Date Recorded Q1: How often do you have a drink containing alc ohol? 2-4 times a month 06/12/2022 Q2: How many drinks containi ng alcohol do you have on a typical day when you are drinking? 3 or 4 06/12/2022 Q3: How often do you have si x or more drinks on one occasion? 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 on file Not on file Not on fi le Last Filed Vital Signs Vital Sign Reading Time Taken Comments Blood Pressure 137/96 07/10/2024 9:22 AM SWAGING MACHINE OPERATOR Pulse 92 07/10/2024 9:22 AM SWAGING MACHINE OPERATOR Temperature 36.6 C (97.9 F) 06/12/2022 3:00 PM SWAGING MACHINE OPERATOR Respiratory Rate 16 03/16/2024 9:29 AM CDT Oxygen Saturation 97% 06/12/2022 3:00 PM SWAGING MACHINE OPERATOR Inhaled Oxygen Concentration - - Weight 96.2 kg (212 lb) 07/10/2024 9:22 AM SWAGING MACHINE OPERATOR Height 167.6 cm (5' 6 ) 07/10/2024 9:22 AM SWAGING MACHINE OPERATOR Body Mass Index 34.22 07/10/2024 9:22 AM SWAGING MACHINE OPERATOR Plan of Treatment Not on file Medical Devices Implanted Type Area Coach Device Identifier Shelf Expiration Date Model / Serial / Lot [employer] Attune 5mm Cruciate Retaining Fix Bearing Knee 6 Insert Tibial [id number] - [id number] Implanted:Qty: 1 on 03/15/2022 by Luisito Gallardo MD at [facility] Left: Knee [employer] 08/07/2026 [id number] / / [id number] [employer] Attune Fb Tib Base Sz 6 Por [id number] - [id number] Implanted:Qty: 1 on 03/15/2022 by Luisito Gallardo MD at [facility] Left: Knee [employer] 07/07/2031 [id number] / / [id number] [employer] Attune Cruciate Retain Cementless Knee Left 6 Component Femoral [id number] - [id number] Implanted:Qty: 1 on 03/15/2022 by Luisito Gallardo MD at [facility] Left: Knee [employer] 03/07/2031 [id number] / / [id number] [employer] Attune Cruciate Retain Cementless Knee Right 6 Component Femoral [id number] - [id number] Implanted:Qty: 1 on 06/12/2022 by Luisito Gallardo MD at [facility] Right: Knee [employer] [id number] 11/05/2031 [id number] / / [id number] [employer] Attune Fb Tib Base Sz 6 Por [id number] - [id number] Implanted:Qty: 1 on 06/12/2022 by Luisito Gallardo MD at [facility] Right: Knee [employer] [id number] 12/06/2031 [id number] / / [id number] Attune Knee System Tibial Insert Fixed Bearing Medial Stabilized Size 6 Right 6 Mm [employer]ox Ref [id number] Implanted:Qty: 1 on 06/12/2022 by Luisito Gallardo MD at [facility] Right: Knee [employer] [id number] 01/05/2032 / / [id number] Procedures Procedure Name Priority Date/Time Associated Diagnosis Comments SODIUM LEVEL Routine 10/28/2024 12:00 PM CDT Chronic hyponatremia from Last 3 Months Results * (ABNORMAL) Sodium level (10/28/2024 12:00 PM CDT) Sodium 132(L) 135 - 145 mmol/L Blood 10/28/2024 12:0 0 PM CDT 10/28/2024 8:27 PM CDT us Kwabenaja Kannan Brunenr MD LAB BLOOD ORDERABLE S Final Result [facility] [id number] Department [place] [address] from Last 3 Months Insurance [facility] [employer] Address: [address] [place] [address] [employer] Address: [facility] [id number] [place] [address] Care Teams Carbon Printer Relationship Specialty Start Date End Date Cara Cordoba DO PCP - General Family Medicine 11/23/21 Don Avila PA [address] [place] [address] [place] [address] Physician Communications Specialist Orthopedic Surgery 03/15/22
--- OUTSIDE RECORDS SUMMARY | 2024-11-17 08:39 | XMS_ITS | Clinical Summary ---
[facility] Address [address] [place] [address] Care Team Providers Care Budget Clerk Name Role Phone Cara Cordoba DO Primary Care Provider [phone] Don Avila Unavailable [phone] Allergies No known active allergies Medications clobetasoL [...] (05/17/2022): Added automatically from request for surgery [id number] Chronic hyponatremia 03/02/2022 Assessment & Plan (03/23/2024 [...] (02/23/2022): Added automatically from request for surgery [id number] Complex tear of medial menis cus of right knee as current injury 01/23/2018 Overview (01/23/2018): Added automatically from request for surgery [id number] Tear of medial meniscus of l eft knee, current, initial encounter 08/23/2017 Overview (08/23/2017): Added automatically from request for surgery [id number] Vitiligo 05/14/2017 Lentigo 02/28/2016 Referred otalgia 11/23/2011 Actinic keratosis 10/25/2010 Encounters Date Type Department Care Team Description 10/29/2024 Results [facility] [address] [phone] Joe Roper MD 10/28/2024 8:16 PM CDT - 10/28/2024 11:59 PM CDT Hospital Encounter [facility] [address] [place] [address] Chronic hyponatremia Discharge Disposition: Discharge to home or self care 10/28/2024 3:15 PM CDT Lab [facility] Outpatient Lab at [address] [phone] Class 1 obesity due to excess calories with serious comorbidity and body mass index (BMI) of 32.0 to 32.9 in adult (Primary Dx) from Last 3 Months Surgical History Surgery Date Site/Laterality Comments COLONOSCOPY TOOTH EXTRACTION 01/20/18 currently on Antibiotic KNEE ARTHROSCOPY W/ LATERAL RELEASE 09/2017 right knee; 01/2018 left knee KNEE ARTHROPLASTY Left JOINT REPLACEMENT left 03/15/2022; right 06/12/2022 Medical History Medical History Date Comments Hypertension Hyperlipidemia Chronic hyponatremia Obesity (BMI 30.0-34.9) Primary osteoarthritis of both knees Family History Medical History Relation Name Comments Cancer Father Rober Seo Cancer Mother Krissy Seo Heart disease Neg Hx Hypertension Neg Hx Relation Name Status Comments Father Rober Seo Mother Krissy Seo Social History Tobacco Use Types Packs/Day Years [...] on file Legal Sex Male 4:55 AM DIRECTOR OF REHABILITATION Gender Identity Not on file Sexual Orientation Not on file 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 on file Not on file Not on fi le Obstetrics History Last Filed Vital Signs Vital Sign Reading Time Taken Comments Blood Pressure 137/96 07/10/2024 9:22 AM DIRECTOR OF REHABILITATION Pulse 92 07/10/2024 9:22 AM DIRECTOR OF REHABILITATION Temperature 36.6 C (97.9 F) 06/12/2022 3:00 PM DIRECTOR OF REHABILITATION Respiratory Rate 16 03/16/2024 9:29 AM CDT Oxygen Saturation 97% 06/12/2022 3:00 PM DIRECTOR OF REHABILITATION Inhaled Oxygen Concentration - - Weight 96.2 kg (212 lb) 07/10/2024 9:22 AM DIRECTOR OF REHABILITATION Height 167.6 cm (5' 6 ) 07/10/2024 9:22 AM DIRECTOR OF REHABILITATION Body Mass Index 34.22 07/10/2024 9:22 AM DIRECTOR OF REHABILITATION Plan of Treatment Health Maintenance Due Date Last Done Comments Colon Cancer Screening-Colonoscopy 1961 Hepatitis C Screening 1961 Prostate Cancer Screening-PSA 1961 Hepatitis B Screening 11/21/1979 Regular Well Visit/Exam 18-64 11/21/1979 DTaP/Tdap/Td Vaccine (1 - Tdap) 06/19/2003 06/18/2003 Zoster Vaccine (1 of 2) 11/21/2011 Covid-19 Vaccine (5 - season) 2024 11/02/2021, 05/10/2021, 09/26/2020, Additional history exists Influenza Vaccine (Season Ended) 2025 04/10/2021, 03/17/2020, 04/22/2019, Additional history exists Depression Screening 03/16/2025 03/16/2024, 05/11/2022, 03/02/2022 Pneumococcal vaccine <65 Aged Out No longer eligible based on patient's age to complete this topic Medical Devices Implanted Type Area Research Management Associate Device Identifier Shelf Expiration Date Model / Serial / Lot [employer] Attune 5mm Cruciate Retaining Fix Bearing Knee 6 Insert Tibial [id number] - [id number] Implanted:Qty: 1 on 03/15/2022 by Luisito Gallardo MD at [facility] Left: Knee [employer] 08/07/2026 [id number] / / [id number] [employer] Attune Fb Tib Base Sz 6 Por [id number] - [id number] Implanted:Qty: 1 on 03/15/2022 by Luisito Gallardo MD at [facility] Left: Knee [employer] 07/07/2031 [id number] / / [id number] [employer] Attune Cruciate Retain Cementless Knee Left 6 Component Femoral [id number] - [id number] Implanted:Qty: 1 on 03/15/2022 by Luisito Gallardo MD at [facility] Left: Knee [employer] 03/07/2031 [id number] / / [id number] [employer] Attune Cruciate Retain Cementless Knee Right 6 Component Femoral [id number] - [id number] Implanted:Qty: 1 on 06/12/2022 by Luisito Gallardo MD at [facility] Right: Knee [employer] [id number] 11/05/2031 [id number] / / [id number] [employer] Attune Fb Tib Base Sz 6 Por [id number] - [id number] Implanted:Qty: 1 on 06/12/2022 by Luisito Gallardo MD at [facility] Right: Knee [employer] [id number] 12/06/2031 [id number] / / [id number] Attune Knee System Tibial Insert Fixed Bearing Medial Stabilized Size 6 Right 6 Mm Aox Ref 1520-20-606 Implanted:Qty: 1 on 06/12/2022 by Luisito Gallardo MD at [facility] Right: Knee [employer] [id number] 01/05/2032 / / [id number] Procedures Procedure Name Priority Date/Time Associated Diagnosis Comments SODIUM LEVEL Routine 10/28/2024 12:00 PM CDT Chronic hyponatremia from Last 3 Months Results * (ABNORMAL) Sodium level (10/28/2024 12:00 PM CDT) Sodium 132(L) 135 - 145 mmol/L Blood 10/28/2024 12:0 0 PM CDT 10/28/2024 8:27 PM CDT Joe Brunner MD LAB [place]LOOD [place] [id number] [address] [place] [address] from Last 3 Months Insurance [facility] AETNA SIGNATURE [employer]IGNA CIGNA Care Teams Budget Clerk Relationship Specialty Start Date End Date Cara Cordoba DO PCP - General Family Medicine 11/23/21 Don Avila PA [address] [facility] [address] [address] Physician Wheelage Clerk Orthopedic Surgery 03/15/22
--- OUTSIDE RECORDS SUMMARY | 2024-11-17 08:39 | XMS_ITS | Encounter Summary ---
Author Organization [facility] Healthcare Address [address] [place] [address] Care Team Providers Care Dressmaker Or Tailor Name Role Phone Cara Cordoba DO Primary Care Provider [phone]- [phone] Don Avila PA Unavailable [phone] Encounter Details Date Type Department Care Team (Late st Contact Info) Description 10/29/2024 Results Follow-Up [facility] [id number] [place] [phone] [place] [id number] [address] Social History Tobacco Use Types Packs/Day Years Used Date Smoking Tobacco: Former Cigarettes Smokeless Tobacco: Never Alcohol Use Standard Drinks/Week Comments Yes 0 [...] on file 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 Gender Identity Not on file Sexual Orientation Not on file 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
[2024-11-17 13:11] LABS: Hematocrit 40.6 % (42.0-52.0); Hemoglobin 14.4 g/dL (14.0-18.0); Mean Corpuscular HGB Conc 35.5 g/dl (32-36); Mean Corpuscular Hemoglobin 33.6 pg (26-34); Mean Corpuscular Volume 94.9 fl (80-100); Mean Platelet Volume 10.6 fl (7.4-10.4); Platelet Count Result 218 k/mm3 (150-375); Red Blood Count 4.28 M/mm3 (4.6-6.20); Red Cell Distribution Width 12.6 % (11.5-14.5); White Blood Count 5.2 K/mm3 (4.5-10.0)
[2024-11-17 13:55] LABS: Alanine Aminotransferase 25 U/L (6-50); Albumin Level 4.8 g/dL (3.5-5.1); Alkaline Phosphatase 74 U/L (38-126); Anion Gap 12 mmol/L (4-12); Aspartate Amino Transferase 48 U/L (17-59); Bilirubin,Total 1.3 mg/dL (0.2-1.3); Blood Urea Nitrogen 19 mg/dL (9-20); Calcium 9.2 mg/dL (8.4-10.2); Carbon Dioxide 25 mmol/L (22-30); Chloride 95 mmol/L (98-107); Cholesterol 198 mg/dL (0-200); Estimated Glomerular Filt Rate > 60; Glucose 79 mg/dL (65-110); HDL Direct 83 mg/dL; Potassium 4.5 mmol/L (3.4-5.0); Sodium 132 mmol/L (137-145); Triglycerides 115 mg/dL (<150)
[2024-11-17 14:08] LABS: LDL Cholesterol Direct 70 mg/dL
[2024-11-17 14:21] LABS: Iron 144 ug/dL (49-181)
[2024-11-17 14:56] LABS: Percent Iron Saturation 51 % (20-50)
[2024-11-17 15:03] LABS: Folic Acid 6.1 ng/mL (2.76->20)
== END 2024-11-17 08:34 | disposition home or self-care (01) ==
LOC: ANHGOSHLAB 08:33
PROVIDERS: PCP Family Medicine; Visit Provider Family Medicine
DX: D64.9 Anemia, unspecified (principal); I10 Essential (primary) hypertension; E78.00 Pure hypercholesterolemia, unspecified; R74.8 Abnormal levels of other serum enzymes; E66.9 Obesity, unspecified; R79.89 Other specified abnormal findings of blood chemistry
CPT/HCPCS: 36415; 80053; 80061; 82607; 82728; 82746; 83540; 83550; 84443; 85027

== ENCOUNTER 2025-01-23 17:57 | Emergency (ER) | payer OTHER, SELFPAY ==
--- NOTE | ~2025-01-23 | CT_ITS ---
Non-contrast CT scan of the Abdomen and Pelvis Clinical indication: Abdominal pain Technique: 2.5 mm axial scans were obtained through the abdomen and pelvis without intravenous or or al contrast. Dose reduction technique was used on this scan by utilizing automated exposure control a nd iterative reconstruction technique. The dose-length product (DLP) was 942.20 mGy-cm. Findings: Images through the lung bases reveal no abnormalities. There is no evidence of renal or ureteral calculi. The kidneys and the ureters are nondilated. The liver, spleen, pancreas, gallbladder, and adrenals appear normal. There is no aortic aneurysm. There is no evidence of bowel obstruction. Images through the pelvis were performed. There is no evidence of ascites or lymphadenopathy. Urinary bladder unremarkable. Prostate gland is mildly enlarged. There is mild asymmetric prominence of the right seminal vesicle. Impression: Asymmetric prominence of the right seminal vesicle. Mass lesion not completely excluded. Consider add itional workup as indicated. No other significant findings. Reviewed, dictated and finalized at [facility]. Impression: Asymmetric prominence of the right seminal vesicle. Mass lesion not completely excluded. Consider additional workup as indicated. No other significant findings.
--- OUTSIDE RECORDS SUMMARY | 2025-01-23 18:01 | XMS_ITS | Referral Summary ---
Author Organization [facility] Medical Office Building B Address [address] [place] [address] Care Team Providers Care Demand Planner Name Role Phone Cara Cordoba DO Primary Care Provider [phone]- [phone] Don Avila PA Unavailable [phone] Encounters Date Type Department Care Team Description 10/29/2024 Results Follow-Up [facility] [address] [place] [phone] Joe Roper MD Sodium level 10/28/2024 8:16 PM CDT - 10/28/2024 11:59 PM CDT Hospital Encounter [facility] [address] [place] [address] Chronic hyponatremia Discharge Disposition: Discharge to home or self care 10/28/2024 3:15 PM CDT Lab [facility] Outpatient Lab at [address] [phone] Class 1 obesity due to excess calories [...] (05/17/2022): Added automatically from request for surgery [id number] Chronic hyponatremia 03/02/2022 Assessment & Plan (03/23/2024 [...] (02/23/2022): Added automatically from request for surgery [id number] Complex tear of medial menis cus of right knee as current injury 01/23/2018 Overview (01/23/2018): Added automatically from request for surgery [id number] Tear of medial meniscus of l eft knee, current, initial encounter 08/23/2017 Overview (08/23/2017): Added automatically from request for surgery [id number] Vitiligo 05/14/2017 Lentigo 02/28/2016 Referred otalgia 11/23/2011 [...] on file Legal Sex Male 4:55 AM BUGGY RUNNER Gender Identity Not on file Sexual Orientation Not on file 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 Not on file Not on fi le Last Filed Vital Signs Vital Sign Reading Time Taken Comments Blood Pressure 137/96 07/10/2024 9:22 AM BUGGY RUNNER Pulse 92 07/10/2024 9:22 AM BUGGY RUNNER Temperature 36.6 C (97.9 F) 06/12/2022 3:00 PM BUGGY RUNNER Respiratory Rate 16 03/16/2024 9:29 AM CDT Oxygen Saturation 97% 06/12/2022 3:00 PM BUGGY RUNNER Inhaled Oxygen Concentration - - Weight 96.2 kg (212 lb) 07/10/2024 9:22 AM BUGGY RUNNER Height 167.6 cm (5' 6) 07/10/2024 9:22 AM BUGGY RUNNER Body Mass Index 34.22 07/10/2024 9:22 AM BUGGY RUNNER Plan of Treatment Not on file Medical Devices Implanted Type Area Internal Grinder Set Up Operator Device Identifier Shelf Expiration Date Model / Serial / Lot [employer] Attune 5mm Cruciate Retaining Fix Bearing Knee 6 Insert Tibial [id number] - [id number] Implanted:Qty: 1 on 03/15/2022 by Luisito Gallardo MD at [facility] Left: Knee [employer] 08/07/2026 [id number] / / [id number] [employer] Attune Fb Tib Base Sz 6 Por [id number] - [id number] Implanted:Qty: 1 on 03/15/2022 by Luisito Gallardo MD at [facility] Left: Knee [employer] 07/07/2031 [id number] / / [id number] [employer] Attune Cruciate Retain Cementless Knee Left 6 Component Femoral [id number] - [id number] Implanted:Qty: 1 on 03/15/2022 by Luisito Gallardo MD at [facility] Left: Knee [employer] 03/07/2031 [id number] / / [id number] [employer] Attune Cruciate Retain Cementless Knee Right 6 Component Femoral [id number] - [id number] Implanted:Qty: 1 on 06/12/2022 by Luisito Gallardo MD at [facility] Right: Knee [employer] [id number] 11/05/2031 [id number] / / [id number] [employer] Attune Fb Tib Base Sz 6 Por [id number] - [id number] Implanted:Qty: 1 on 06/12/2022 by Luisito Gallardo MD at [facility] Right: Knee [employer] [id number] 12/06/2031 [id number] / / [id number] Attune Knee System Tibial Insert Fixed Bearing Medial Stabilized Size 6 Right 6 Mm Aox Ref 1520-20-606 Implanted:Qty: 1 on 06/12/2022 by Luisito Gallardo MD at [facility] Right: Knee [employer] [id number] 01/05/2032 / / [id number] Procedures Procedure Name Priority Date/Time Associated Diagnosis Comments SODIUM LEVEL Routine 10/28/2024 12:00 PM CDT Chronic hyponatremia from Last 3 Months Results * (ABNORMAL) Sodium level (10/28/2024 12:00 PM CDT) Sodium 132(L) 135 - 145 mmol/L Blood 10/28/2024 12:0 0 PM CDT 10/28/2024 8:27 PM CDT us Kwabenaja Kannan Brunner MD LAB BLOOD [place] [id number] [address] Department [place] [address] from Last 3 Months Insurance [facility] AETNA SIGNATURE [employer] Address: [facility] [id number] [place] [address] [employer] Address: [facility] [id number] [place] [address] Care Teams Demand Planner Relationship Specialty Start Date End Date Cara Cordoba DO PCP - General Family Medicine 11/23/21 Don Avila PA [address] [place] [address] [place] [address] Physician Airplane Fueler Orthopedic Surgery 03/15/22
--- OUTSIDE RECORDS SUMMARY | 2025-01-23 18:01 | XMS_ITS | Continuity of Care Document ---
Author Organization [employer] Address [address] [place] [address] [address] [place] [address] Phone Care Team Providers Care Railroad Repairer Name Role Phone Ca PT,MPT,ATC, Seferino Unavailable Unavai lable Procedures Procedure Date Therapeutic Activities Neuromuscular Re-Ed Therapeutic Exercise Therapeutic Activities Neuromuscular Re-Ed Therapeutic Exercise Doc neg elder mal no plan PT Re-evaluation Therapeutic Activities Neuromuscular Re-Ed Therapeutic Activities Neuromuscular Re-Ed Manual Therapy Therapeutic Activities Neuromuscular Re-Ed Manual Therapy Therapeutic Activities Neuromuscular Re-Ed Manual Therapy Therapeutic Activities Neuromuscular Re-Ed Manual Therapy Doc neg elder mal no plan PT Evaluation Moderate Complexity Therapeutic Activities Neuromuscular Re-Ed PT Re-evaluation Therapeutic Activities Neuromuscular Re-Ed Therapeutic Exercise Therapeutic Activities Neuromuscular Re-Ed Therapeutic Exercise Therapeutic Activities Neuromuscular Re-Ed Therapeutic Exercise Therapeutic Activities Neuromuscular Re-Ed Therapeutic Exercise Therapeutic Activities Neuromuscular Re-Ed Therapeutic Exercise Therapeutic Activities Neuromuscular Re-Ed Therapeutic Exercise Therapeutic Activities Neuromuscular Re-Ed Therapeutic Exercise Therapeutic Activities Neuromuscular Re-Ed Therapeutic Exercise Therapeutic Activities Neuromuscular Re-Ed Therapeutic Exercise Therapeutic Activities Neuromuscular Re-Ed Therapeutic Exercise Therapeutic Activities Neuromuscular Re-Ed Therapeutic Exercise Manual Therapy Therapeutic Activities Neuromuscular Re-Ed Therapeutic Exercise Manual Therapy Therapeutic Activities Neuromuscular Re-Ed Therapeutic Exercise Manual Therapy Progress Note Therapeutic Activities Neuromuscular Re-Ed Therapeutic Exercise Manual Therapy Therapeutic Activities Neuromuscular Re-Ed Therapeutic Exercise Manual Therapy Therapeutic Activities Neuromuscular Re-Ed Therapeutic Exercise Manual Therapy Therapeutic Activities Neuromuscular Re-Ed Therapeutic Exercise Manual Therapy Therapeutic Activities Neuromuscular Re-Ed Therapeutic Exercise Manual Therapy Therapeutic Activities Neuromuscular Re-Ed Therapeutic Exercise Manual Therapy Therapeutic Activities Neuromuscular Re-Ed Therapeutic Exercise Manual Therapy Therapeutic Activities Neuromuscular Re-Ed Therapeutic Exercise Manual Therapy Therapeutic Activities Neuromuscular Re-Ed Therapeutic Exercise Manual Therapy Therapeutic Activities Neuromuscular Re-Ed Therapeutic Exercise Manual Therapy PT Evaluation Moderate Complexity Neuromuscular Re-Ed Therapeutic Exercise Manual Therapy Hot or Cold Pack Therapeutic Activities Neuromuscular Re-Ed Therapeutic Exercise Therapeutic Activities Neuromuscular Re-Ed Therapeutic Exercise Therapeutic Activities Neuromuscular Re-Ed Therapeutic Exercise Therapeutic Activities Neuromuscular Re-Ed Therapeutic Exercise Therapeutic Activities Neuromuscular Re-Ed Therapeutic Exercise Therapeutic Activities Neuromuscular Re-Ed Therapeutic Exercise Manual Therapy Therapeutic Activities Neuromuscular Re-Ed Therapeutic Exercise Manual Therapy Therapeutic Activities Neuromuscular Re-Ed Therapeutic Exercise Manual Therapy Therapeutic Activities Neuromuscular Re-Ed Therapeutic Exercise Manual Therapy Therapeutic Activities Neuromuscular Re-Ed Therapeutic Exercise Manual Therapy Therapeutic Activities Neuromuscular Re-Ed Therapeutic Exercise Manual Therapy PT Re-evaluation Therapeutic Activities Neuromuscular Re-Ed Therapeutic Exercise Manual Therapy Therapeutic Activities Neuromuscular Re-Ed Therapeutic Exercise Manual Therapy Therapeutic Activities Neuromuscular Re-Ed Therapeutic Exercise Manual Therapy Neuromuscular Re-Ed Therapeutic Exercise Manual Therapy Therapeutic Activities Therapeutic Activities Therapeutic Exercise Manual Therapy Therapeutic Activities Manual Therapy Therapeutic Exercise Therapeutic Activities Therapeutic Exercise Manual Therapy Therapeutic Activities Manual Therapy Therapeutic Exercise Therapeutic Activities Manual Therapy Therapeutic Exercise Therapeutic Activities Manual Therapy Therapeutic Exercise Therapeutic Exercise Manual Therapy Therapeutic Activities PT Evaluation Moderate Complexity Therapeutic Exercise Therapeutic Activities Therapeutic Activities Neuromuscular Re-Ed Therapeutic Exercise Therapeutic Activities Neuromuscular Re-Ed Manual Therapy Therapeutic Exercise Neuromuscular Re-Ed Therapeutic Activities Therapeutic Exercise Manual Therapy Neuromuscular Re-Ed Therapeutic Activities Therapeutic Exercise Manual Therapy Therapeutic Activities Neuromuscular Re-Ed Therapeutic Exercise Manual Therapy PT Evaluation Moderate Complexity Therapeutic Activities Therapeutic Exercise Therapeutic Exercise Neuromuscular Re-Ed Therapeutic Exercise Neuromuscular Re-Ed Therapeutic Exercise Therapeutic Exercise Therapeutic Exercise Neuromuscular Re-Ed Therapeutic Exercise Neuromuscular Re-Ed Therapeutic Exercise Neuromuscular Re-Ed PT Evaluation Moderate Complexity Therapeutic Exercise Manual Therapy PT Evaluation Low Complexity Therapeutic Exercise Neuromuscular Re-Ed Screening Screening Advance Directives Directive Yes / No Effective Date File Name No Information Encounters Encounter Description Practice Location Reason(s) For Visit Diagnoses Date Provider Providers Copied on Encounter [facility], [place], [place], [id number], tel:[phone] [place] No Information 5 [place], . Referring Provider: Earl Blankenship [address], [place], [address]. tel:[phone] [facility], [place], [place], [address], tel:[phone] [place] No Information 5 Corrie Rsut. . Referring Provider: Earl Blankenship, [address], [place], [address]. tel:[phone] [facility], [place], [place], [address], [place] tel:[phone] [place] No Information 5 Corrie Rust. . Referring Provider: Earl Blankenship, [address], [place], [address]. tel:[phone] [facility], [place], [place], [address], [place] tel:[phone] [place] No Information 5 Ca Seferino. , [place], [place]. Referring Provider: Earl Blankenship, [address], [place], [address]. tel:[phone] [facility], [place], [place], [address], [place] tel:[phone] [place] No Information 4 Ca Seferino. , [place], [place]. Referring Provider: Access [employer]. [facility], [place], [place], [address], [place] tel:[phone] [place] No Information 4 Ca Sef[place]. , [place]. Referring Provider: [employer]. [facility], [place], [place], [address], [place] tel:[phone] [place] No Information 4 Ca Sef[place]. , [place]. Referring Provider: [employer]. [facility], [place], [place], [address], [place] tel:[phone] [place] No Information 4 Roby Samsonn. , [place], [place]. Referring Provider: [employer]. [facility], [place], [place], [address], [place] tel:[phone] [place] No Information 4 Roby Samsonn. , [place], [place]. Referring Provider: [employer]. [facility], [place], [place], [address], [place] tel:[phone] [place] No Information 3 Roby Borjas , [place], [place]. Referring Provider: Luisito Gallardo, 4 [facility] [address], [place], [address]. tel:[phone] [facility], [address], [place], [place], [address], [place] tel:[phone] [place] No Information 3 Roby Borjas , [place], [place]. Referring Provider: Luisito Gallardo, [address] [facility] [address], [place], [address]. tel:[phone] [facility], [address], [place], [place], [address], [place] tel:[phone] [place] No Information 3 Roby Borjas , [place], [place]. Referring Provider: Luisito Gallardo, 4 [facility] [address] [facility] [address], [place], [address]. tel:[phone] [facility], [place], [place], [address], [place] tel:[phone] [place] No Information 3 Roby Borjas , [place], [place]. Referring Provider: Luisito Gallardo, 4 [facility] [address] [facility] [address], [place], [address]. tel:[phone] [facility], [place], [place], [address], [place] tel:[phone] [place] No Information 3 Roby Borjas , [place], [place]. Referring Provider: Luisito Gallardo, 4 [facility] [address], [place], [address]. tel:[phone] [facility], [place], [place], [address], [place] tel:[phone] [place] No Information 3 Roby Borjas , [place], [place]. Referring Provider: Luisito Gallardo, [address] [facility] [address], [place], [address]. tel:[phone] [facility], [address], [place], [place], [address], [place] tel:[phone] [place] No Information 0 3 Roby Borjas , [place], [place]. Referring Provider: Luisito Gallardo, 4 [facility] [address] [facility] [address], [place], [address]. tel:[phone] [facility], [address], [place], [address], [place] tel:[phone] [place] No Information 0 3 Roby Borjas , [place], [place]. Referring Provider: Luisito Gallardo, 4 [facility] [address] [facility] [address], [place], [address]. tel:[phone] [facility], [address], [place], [place], [address], [place] tel:[phone] [place] No Information 0 3 Rowena Godinez. . Referring Provider: Luisito Gallardo, 4 [facility] [address] [facility] [address], [place], [address]. tel:[phone] [facility], [place], [place], [address], [place] tel:[phone] [place] No Information 0 3 Roby Borjas , [place], [place]. Referring Provider: Luisito Gallardo, 4 [facility] [address] [facility] [address], [place], [address]. tel:[phone] [facility], [address], [place], [place], [address], [place] tel:[phone] [place] No Information 3 Roby Borjas , [place], [place]. Referring Provider: Luisito Gallardo, 4 [facility] [address] [facility] [address], [place], [address]. tel:[phone] [facility], [place], [place], [address], [place] tel:[phone] [place] No Information 3 Roby Gentile , [place], [place]. Referring Provider: Luisito Gallardo, 4 [facility] [address] [facility] [address], [place], [address]. tel:[phone] [facility], [address], [place], [place], [address], [place] tel:[phone] [place] No Information 3 Roby Gentile , [place], [place]. Referring Provider: Luisito Gallardo, 4 [facility] [address] [facility] [address], [place], [address]. tel:[phone] [facility], [address], [place], [place], [address], [place] tel:[phone] [place] No Information 3 Roby Gentile , [place], [place]. Referring Provider: Luisito Gallardo, 4 [facility] [address] [facility] [address], [place], [address]. tel:[phone] [facility], [address], [place], [address], [place] tel:[phone] [place] No Information 3 Roby Gentile , [place], [place]. Referring Provider: Luisito Gallardo, 4 [facility] [address] [facility] [address], [place], [address]. tel:[phone] [facility] [address], [place], [place], [address], [place] tel:[phone] [place] No Information 3 Rowena Godinez. . Referring Provider: Luisito Gallardo, 4 [facility] [address] [facility] [address], [place], [address]. tel:[phone] [facility], [place], [address], [place] tel:[phone] [place] No Information 3 Rowena Godinez. . Referring Provider: Luisito Gallardo, 4 [facility] [address], [place], [address]. tel:[phone] [facility], [address], [place], [address], [place] tel:[phone] [place] No Information 3 [place], . Referring Provider: Luisito Gallardo, 4 [facility] [address] [facility] [address], [place], [address]. tel:[phone] [facility], [address], [place], [place], [address], [place] tel:[phone] [place] No Information 2 Keithn Herbert. . Referring Provider: Luisito Gallardo, 4 [facility] [address] [facility] [address], [place], [address]. tel:[phone] [facility], [address], [place], [place], [address], [place] tel:[phone] [place] No Information 2 Keithn Herbert. . Referring Provider: Luisito Gallardo, 4 [facility] [address] [facility] [address], [place], [address]. tel:[phone] [facility], [place], [place], [address], [place] tel:[phone] [place] No Information 2 Rowena Godinez. . Referring Provider: Luisito Gallardo, 4 [facility] [address] [facility] [address], [place], [address]. tel:[phone] [facility], [address], [place], [place], [address], [place] tel:[phone] [place] No Information 2 Keithn Herbert. . Referring Provider: Luisito Gallardo, 4 [facility] [address] [facility] [address], [place], [address]. tel:[phone] [facility], [place], [place], [address], [place] tel:[phone] [place] No Information Jun- 2 Klahn Herbert. . Referring Provider: Luisito Gallardo, 4 [facility] [address], [place], [address]. tel:[phone] [facility], [address], [place], [place], [address], [place] tel:[phone] [place] No Information Jun- 2 Maria Fernanda Rosen. [address] [facility], [address], [place], [address], [place]. tel:[phone] Referring Provider: Luisito Gallardo, 4 [facility] [address], [place], [address]. tel:[phone] [facility], [address], [place], [place], [address], [place] tel:[phone] [place] No Information 3 2 Klahn Herbert. . Referring Provider: Luisito Gallardo, 4 [facility] [address], [place], [address]. tel:[phone] [facility], [address], [place], [place], [address], [place] tel:[phone] [place] No Information 2 Klahn Herbert. . Referring Provider: Luisito Gallardo, 4 [facility] [address] [facility] [address], [place], [address]. tel:[phone] [facility], [place], [place], [address], [place] tel:[phone] [place] No Information Nov-2 2 Klahn Herbert. . Referring Provider: Luisito Gallardo, 4 [facility] [address], [place], [address]. tel:[phone] [facility], [address], [place], [place], [address], [place] tel:[phone] [place] No Information Nov-2 2 Klahn Herbert. . Referring Provider: Luisito Gallardo, 4 [facility] [address], [place], [address]. tel:[phone] [facility], [address], [place], [place], [address], [place] tel:[phone] [place] No Information 2 Roby Gentile. , [place], [place]. Referring Provider: Luisito Gallardo, [address] [facility] [address], [place], [address]. tel:[phone] [facility], [address], [place], [place], [address], [place] tel:[phone] [place] No Information 2 Roby Gentile. , [place], [place]. Referring Provider: Luisito Gallardo, 4 [facility] [address], [place], [address]. tel:[phone] [facility], [address], [place], [place], [address], [place] tel:[phone] [place] No Information Nov-0 2 Roby Gentile. , [place], [place]. Referring Provider: Luisito Gallardo, [address] [facility] [address], [place], [address]. tel:[phone] [facility], [address], [place], [place], [address], [place] tel:[phone] [place] No Information Nov0 2 Roby Samsonn. , [place], [place]. Referring Provider: Luisito Gallardo, [address] [facility] [address], [place], [address]. tel:[phone] [facility], [address], [place], [place], [address], [place] tel:[phone] [place] No Information Nov-0 2 Roby Gentile. , [place], [place]. Referring Provider: Luisito Gallardo, [address] [facility] [address], [place], [address]. tel:[phone] [facility], [address], [place], [place], [address], [place] tel:[phone] [place] No Information 2 Roby Gentile. , [place], [place]. Referring Provider: Luisito Gallardo, 4 [facility] [address] [facility] [address], [place], [address]. tel:[phone] [facility], [place], [place], [address], [place] tel:[phone] [place] No Information 2 Roby Gentile. , [place], [place]. Referring Provider: Luisito Gallardo, 4 [facility] [address] [facility] [address], [place], [address]. tel:[phone] [place] [address], [address], [place], [place], [address], [place] tel:[phone] [place] No Information 2 Roby Gentile. , [place], [place]. Referring Provider: Luisito Gallardo, 4 [facility] [address] [facility] [address], [place], [address]. tel:[phone] [facility], [address], [place], [place], [address], [place] tel:[phone] [place] No Information 2 Roby Gentile. , [place], [place]. Referring Provider: Luisito Gallardo, 4 [facility] [address] [facility] [address], [place], [address]. tel:[phone] [facility], [place], [place], [address], [place] tel:[phone] [place] No Information 2 Roby Gentile. , [place], [place]. Referring Provider: Luisito Gallardo, 4 [facility] [address], [place], [address]. tel:[phone] [facility], [address], [place], [place], [address], [place] tel:[phone] [place] No Information Apr-07 09- 2 Ca Seferino. , [place], [place]. Referring Provider: Luisito Gallardo, 4 [facility] [address] [facility] [address], [place], [address]. tel:[phone] [facility], [address], [place], [place], [address], [place] tel:[phone] [place] No Information Oct-1 0 2 Ca Seferino. , [place], [place]. Referring Provider: Luisito Gallardo, 4 [facility] [address] [facility] [address], [place], [address]. tel:[phone] [facility] [address], [place], [place], [address], [place] tel:[phone] [place] No Information Oct-0 2 [facility] , [place], [place]. Referring Provider: Luisito Gallardo, 4 [facility] [address] [facility] [address], [place], [address]. tel:[phone] [facility], [address], [place], [place], [address], [place] tel:[phone] [place] No Information Oct-0 2 [facility]. , [place], [place]. Referring Provider: Luisito Gallardo, 4 [facility] [address] [facility] [address], [place], [address]. tel:[phone] [facility] [address], [place], [place], [address], [place] tel:[phone] [place] No Information Sep-2 2 [facility] , [place], [place]. Referring Provider: Luisito Gallardo, 4 [facility] [address] [facility] [address], [place], [address]. tel:[phone] [facility] [address], [place], [place], [address], [place] tel:[phone] [place] No Information Sep-2 2 [facility] , [place], [place]. Referring Provider: Luisito Gallardo, 4 [facility] [address] [facility] [address], [place], [address]. tel:[phone] [facility], [address], [place], [place], [address], [place] tel:[phone] [place] No Information Sep-2 2 Rowena Godinez. . Referring Provider: Luisito Gallardo, 4 [facility] [address], [place], [address]. tel:[phone] [facility], [address], [place], [place], [address], [place] tel:[phone] [place] No Information Sep-1 2 Rowena Godinez. . Referring Provider: Luisito Gallardo, 4 [facility] [address] [facility] [address], [place], [address]. tel:[phone] [facility], [address], [place], [place], [address], [place] tel:[phone] [place] No Information Sep- 2 Rowena Godinez. . Referring Provider: Luisito Gallardo, 4 [facility] [address], [place], [address]. tel:[phone] [facility], [place], [place], [address], [place] tel:[phone] [place] No Information Benny-3 2 [place], [place]. Referring Provider: Vick Quiñones, [facility]1 [facility], [place], [address]. tel:[phone] [facility], [address], [place], [place], [address], [place] tel:[phone] [place] No Information Dec-2 2 [place]. Referring Provider: Vick Quiñones, [address] [facility], [place], [address]. tel:[phone] [facility], [address], [place], [place], [address], [place] tel:[phone] [place] No Information 2 Ca Seferino. , [place], [place]. Referring Provider: Vick Quiñones, [address] [facility] [address], [place], [address]. tel:[phone] [facility], [place], [place], [address], [place] tel:[phone] [place] No Information 2 Ca Seferino. , [place], [place]. Referring Provider: Vick Quiñones, [address] [facility] [address], [place], [address]. tel:[phone] [facility], [address], [place], [place], [address], [place] tel:[phone] [place] No Information 2 Ca Seferino. , [place], [place]. Referring Provider: Vick Quiñones, [address] [facility] [address], [place], [address]. tel:[phone] [facility], [place], [place], [address], [place] tel:[phone] [place] No Information 2 Ca Seferino. , [place], [place]. Referring Provider: Vick Quiñones, [address] [facility] [address], [place], [address]. tel:[phone] [facility], [place], [address], [place] tel:[phone] [place] Pain in right kneeStiffness of right knee, not elsewhere classifiedOth symptoms and signs involving the musculoskelet al systemOther abnormalities of gait and mobilityOther specified postprocedura l states 0 8 Ca Seferino. , [place], [place]. [facility], [place], [place], [address], [place] tel:[phone] [place] Pain in right kneeStiffness of right knee, not elsewhere classifiedOth symptoms and signs involving the musculoskelet al systemOther abnormalities of gait and mobilityOther specified postprocedura l states 8 Ca Seferino. , [place], [place]. [facility], [place], [place], [address], [place] tel:[phone] [place] Pain in right kneeStiffness of right knee, not elsewhere classifiedOth symptoms and signs involving the musculoskelet al systemOther abnormalities of gait and mobilityOther specified postprocedura l states 8 Roby Borjas [place], [place]. [facility], [place], [place], [address], [place] tel:[phone] [id number] [place] Pain in right kneeStiffness of right knee, not elsewhere classifiedOth symptoms and signs involving the musculoskelet al systemOther abnormalities of gait and mobilityOther specified postprocedura l states 8 Beatriz Roger. . [facility], [place], [place], [id number], [place] tel:[phone] [place] Pain in right kneeStiffness of right knee, not elsewhere classifiedOth symptoms and signs involving the musculoskelet al systemOther abnormalities of gait and mobilityOther specified postprocedura l states 8 Roby Gentile. , [place], [place]. [facility], [place], [place], [id number], [place] tel:[phone] [place] Pain in right kneeStiffness of right knee, not elsewhere classifiedOth symptoms and signs involving the musculoskelet al systemOther abnormalities of gait and mobilityOther specified postprocedura l states 8 Roby Gentile. , [place], [place]. [facility], [place], [place], [id number], [place] tel:[phone] [place] Pain in right kneeStiffness of right knee, not elsewhere classifiedOth symptoms and signs involving the musculoskelet al systemOther abnormalities of gait and mobilityOther specified postprocedura l states 8 Roby Borjas , [place], [place]. [facility], [place], [place], [id number], [place] tel:[phone] [place] Pain in right kneeStiffness of right knee, not elsewhere classifiedOth symptoms and signs involving the musculoskelet al systemOther abnormalities of gait and mobilityOther specified postprocedura l states 0 8 Threlkeld Rema. . [facility], [place], [place], [id number], tel:[phone] [place] Encounter for other specified aftercareUnsp tear of unsp meniscus, current injury, left knee, subsPain in left knee 8 [place], [place]. [facility], [place], [place], [id number], tel:[phone] [place] No Information 7 [place], . Referring Provider: Physician Screen. [facility], [place], [place], [id number], tel:[phone] [place] No Diagnosis 7 [place], . Referring Provider: Physician Screen. Family History Family Member Type Diagnosis Age At Onset No Information Payers Payer name Insurance type Covered republican ID Authoriza tion(s) No Information Social History Type Description Quantity Date Captured Comments Sex Male Smoking Status No Information Chief Complaint And Reason For Visit No Information Reason For Referral Reason For Referral No Information History Of Present Illness Encounter Date Complaint History Of Prese nt Illness No Information Functional Status Date Functional Assessmen t No Information Instructions Date Instruction Additional Infor mation Giving encouragement to exercise Related to Overweight Giving encouragement to exercise Related to Overweight Giving encouragement to exercise Related to Overweight Giving encouragement to exercise Related to Overweight Giving encouragement to exercise Related to Overweight Giving encouragement to exercise Related to Overweight Giving encouragement to exercise Related to Overweight Giving encouragement to exercise Related to Overweight Giving encouragement to exercise Related to Overweight Giving encouragement to exercise Related to Overweight Giving encouragement to exercise Related to Overweight Giving encouragement to exercise Related to Overweight Giving encouragement to exercise Related to Overweight Giving encouragement to exercise Related to Overweight Assessments Type Assessment Date No Information Patient Care Teams Name Effective Dates (start - stop) Status Members No Information
--- OUTSIDE RECORDS SUMMARY | 2025-01-23 18:01 | XMS_ITS | Clinical Summary ---
Author Organization [facility] Address [address] [place] [address] Care Team Providers Care Java Groovy Developer Name Role Phone Cara Cordoba DO Primary Care Provider [phone] Don Avila Unavailable [phone] Allergies No known active allergies Medications clobetasoL [...] (05/17/2022): Added automatically from request for surgery [id number] Chronic hyponatremia 03/02/2022 Assessment & Plan (03/23/2024 [...] (02/23/2022): Added automatically from request for surgery [id number] Complex tear of medial menis cus of right knee as current injury 01/23/2018 Overview (01/23/2018): Added automatically from request for surgery [id number] Tear of medial meniscus of l eft knee, current, initial encounter 08/23/2017 Overview (08/23/2017): Added automatically from request for surgery [id number] Vitiligo 05/14/2017 Lentigo 02/28/2016 Referred otalgia 11/23/2011 Actinic keratosis 10/25/2010 Encounters Date Type Department Care Team Description 10/29/2024 Results Follow-Up [facility] Specialists of [address] [phone] Joe Roper MD Sodium level 10/28/2024 8:16 PM CDT - 10/28/2024 11:59 PM CDT Hospital Encounter [facility] [address] [place] [address] Chronic hyponatremia Discharge Disposition: Discharge to home or self care 10/28/2024 3:15 PM CDT Lab [facility] Outpatient Lab at [address] [address] Class 1 obesity due to [...] on file Legal Sex Male 4:55 AM COMBUSTION ANALYST Gender Identity Not on file Sexual Orientation Not on file 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 Not on file Not on fi le Obstetrics History Last Filed Vital Signs Vital Sign Reading Time Taken Comments Blood Pressure 137/96 07/10/2024 9:22 AM COMBUSTION ANALYST Pulse 92 07/10/2024 9:22 AM COMBUSTION ANALYST Temperature 36.6 C (97.9 F) 06/12/2022 3:00 PM COMBUSTION ANALYST Respiratory Rate 16 03/16/2024 9:29 AM CDT Oxygen Saturation 97% 06/12/2022 3:00 PM COMBUSTION ANALYST Inhaled Oxygen Concentration - - Weight 96.2 kg (212 lb) 07/10/2024 9:22 AM COMBUSTION ANALYST Height 167.6 cm (5' 6) 07/10/2024 9:22 AM COMBUSTION ANALYST Body Mass Index 34.22 07/10/2024 9:22 AM COMBUSTION ANALYST Plan of Treatment Health Maintenance Due Date Last Done Comments Colon Cancer Screening-Colonoscopy 1961 Hepatitis C Screening 1961 Prostate Cancer Screening-PSA 1961 Hepatitis B Screening 11/21/1979 Regular Well Visit/Exam 18-64 11/21/1979 DTaP/Tdap/Td Vaccine (1 - Tdap) 06/19/2003 06/18/2003 Zoster Vaccine (1 of 2) 11/21/2011 Covid-19 Vaccine ( season) 2024 11/02/2021, 05/10/2021, 09/26/2020, Additional history exists Influenza Vaccine (Season Ended) 2025 04/10/2021, 03/17/2020, 04/22/2019, Additional history exists Depression Screening 03/16/2025 03/16/2024, 05/11/2022, 03/02/2022 Pneumococcal vaccine <65 Aged Out No longer eligible based on patient's age to complete this topic Medical Devices Implanted Type Area Adult School Counselor Device Identifier Shelf Expiration Date Model / Serial / Lot Depuy [employer] Attune 5mm Cruciate Retaining Fix Bearing Knee 6 Insert Tibial [id number] - [id number] Implanted:Qty: 1 on 03/15/2022 by Luisito Gallardo MD at [facility] Left: Knee [employer] 08/07/2026 [id number] / / [id number] [employer] Attune Fb Tib Base Sz 6 Por [id number] - [id number] Implanted:Qty: 1 on 03/15/2022 by Luisito Gallardo MD at [facility] Left: Knee [employer] 07/07/2031 [id number] / / [id number] [employer] Attune Cruciate Retain Cementless Knee Left 6 Component Femoral [id number] - [id number] Implanted:Qty: 1 on 03/15/2022 by Luisito Gallardo MD at [facility] Left: Knee [employer] 03/07/2031 [id number] / / [id number] [employer] Attune Cruciate Retain Cementless Knee Right 6 Component Femoral [id number] - [id number] Implanted:Qty: 1 on 06/12/2022 by Luisito Gallardo MD at [facility] Right: Knee [employer] [id number] 11/05/2031 [id number] / / [id number] [employer] Attune Fb Tib Base Sz 6 Por [id number] - [id number] Implanted:Qty: 1 on 06/12/2022 by Luisito Gallardo MD at [facility] Right: Knee [employer] [id number] 12/06/2031 [id number] / / [id number] Attune Knee System Tibial Insert Fixed Bearing Medial Stabilized Size 6 Right 6 Mm Aox Ref [id number] Implanted:Qty: 1 on 06/12/2022 by Luisito Gallardo MD at [facility] Right: Knee [employer] [id number] 01/05/2032 / / [id number] Procedures Procedure Name Priority Date/Time Associated Diagnosis Comments SODIUM LEVEL Routine 10/28/2024 12:00 PM CDT Chronic hyponatremia from Last 3 Months Results * (ABNORMAL) Sodium level (10/28/2024 12:00 PM CDT) Sodium 132(L) 135 - 145 mmol/L Blood 10/28/2024 12:0 0 PM CDT 10/28/2024 8:27 PM CDT us Joe Brunner MD LAB [place]LOOD [place] [id number] [address] Department [place] [address] from Last 3 Months Insurance [facility] AETNA SIGNATURE CIGNA CIGNA Care Teams Java Groovy Developer Relationship Specialty Start Date End Date Cara Cordoba DO PCP - General Family Medicine 11/23/21 Don Avila PA [address] [facility] [address] [place] [address] Physician Low Heel Builder Orthopedic Surgery 03/15/22
--- OUTSIDE RECORDS SUMMARY | 2025-01-23 18:01 | XMS_ITS | Continuity of Care Document ---
Author Organization [facility] Address [address] [place] [address] Phone Care Team Providers Care Polls Or Surveys Interviewer Name Role Phone Vick Gallo MD Unavailable Unavailable Allergies, Adverse Reactions, Alerts Substance Reaction Status Criticality No Known Allergies Active No Inform ation Medications Medication Instructions Dosage Effective Dates (start - stop) Status Comments No Drug Therapy Prescribed Procedures Procedure Date X-ray exam ankle, minimum 3 views Office[facility]outpatient [facility] 2014 Advance Directives Directive Yes / No Effective Date File Name No Information Encounters Encounter Description Practice Location Reason(s) For Visit Diagnoses Date Provider Providers Copied on Encounter [facility], [address], [id number], tel:[phone] [facility] No Information 5 Sabino Hickman. [address] [facility], [address], [id number] , [place]. tel:[phone] Office/outpat ient visit,[facility], [address], [id number], tel:[phone] [facility] JOINT PAIN-ANKLEAch illes bursitis or tendinitis 0 5 Sabino Hickman. [address] [facility], [address], [id number] , [place]. tel: [phone] Family History Family Member Type Diagnosis Age At Onset Father Problem (finding) malignant neoplasm of l jaylan Mother Problem (finding) malignant neoplasm of l jaylan Payers Payer name Insurance type Covered libertarian ID Authorfabio win(s) Uriel Blue Cross Blue Shiel d [place] BL [id number] Social History Type Description Quantity Date Captured Comments Alcohol Use Details Unknown Caffeine Use Details Unknown Tobacco Use Status No Information Smoking Status No Information Sex Male Chief Complaint And Reason For Visit No Information Reason For Referral Reason For Referral No Information Plan Of Treatment Date Type Action Status Referral Ordered: X-ray exam ankle, minimum 3 views RT ordered History Of Present Illness Encounter Date Complaint History Of Prese nt Illness No Information Functional Status Date Functional Assessmen t No Information Medications Administered Medication Instructions Dosage Effective Dates (start - stop) Status Comments No Drug Therapy Prescribed Instructions Date Instruction Additional Infor mation No Information Assessments Type Assessment Date No Information Patient Care Teams Name Effective Dates (start - stop) Status Members No Information
[2025-01-23 18:10] VITALS: BP 136/90; PULSE 64; RESP 20; TEMP 36.3; O2SAT 99
[2025-01-23 19:56] VITALS: BP 142/92; PULSE 55; RESP 16; O2SAT 99
--- NOTE | 2025-01-23 20:13 | ED_ITS ---
HPI - Abdominal Pain General Chief Complaint: Abdominal Pain Stated Complaint: bloated for a couple of months Time Seen by Provider: 01/23/25 20:02 Source: patient, family and RN notes reviewed Mode of arrival: ambulatory Limitations: no limitations History of Present Illness HPI narrative: 64 y/o WM in the ED for c/o abd pain and constipation X4 days. Pt states he has had constipation since November. Went to PCP and given Miralax and Metamucil. Pt endorses increasing difficulty with BMS. Pt states only having a small hard BM this am. Pt endorses some nausea, gas and abd pain as bowels continue to move. Pt taking gasX with some relief. Pt denies vomiting, CP, SOB, dysuria, fevers, chills. Pt denies blood in the stool when he does have a BM. Related Data Home Medications ?Medication ?Instructions ?Recorded ?Confirmed ?Last Taken ?Type latanoprost 0.005 % eye drops drp EACH EYE DAILY 04/20/24 11/24/24 Unknown History timolol 0.5 % eye drops 1 drp EACH EYE Q12H 11/04/24 11/24/24 Unknown History Allergies Allergy/AdvReac Type Severity Reaction Status Date / Time No Known Drug Allergies Allergy Unknown Unknown Verified 01/23/25 18:14 Review of Systems Review of Systems: All systems reviewed & are unremarkable except as noted in HPI and below PMFSH Past Medical History Medical History Hepatitis C antibody test negative (12/27/16) Hyperlipidemia Essential (primary) hypertension Surgical History Surgical History Total knee replacement status H/O colonoscopy (~12/2011) Family History Family History Mother Family history of lung cancer Patient's mother is , Onset Age: 58 Father Family history of congestive heart failure Family history of cardiovascular disease Social History Social History Social History: Caffeine-Coffee Smoking packs per day: 1 Smoking cigarettes per day: 20.0 Years smoked: 5 Smoking pack-years: 5.00 Smoking status: Never smoker Tobacco type: cigarettes Smoking end date: 07/08/86 Alcohol intake: current Drinks per week: 6 Substance use: current Substance use type: marijuana Other substance usage details: eatables Do You Feel Safe in your Home?: Yes Lack of Transportation: No Lack of Food: Never True Current Housing: I Have Housing Concerned About Future Housing: No Difficulty Paying Gas/Electric Bills: No Difficulty Paying for Meds: No Currently Unemployed: No Education: Master's Degree or Higher Living arrangements: with family Spiritual care concerns: No Exam Const: General: healthy appearing, no acute distress and alert Nutritional Appearance: well nourished Orientation/consciousness: patient oriented x3 Limitations: no limitations HENMT: Head: normal to inspection Eyes: Pupils: Equal, round and reactive pupils present EOM: EOMs intact bilaterally Neck: Neck: normal visual inspection and no lymphadenopathy Chest: Chest palpation & inspection: normal inspection of the chest Resp: Effort & Inspection: normal respiratory effort Auscultation: clear to auscultation bilaterally Cardio: Rate: regular rate Rhythm: regular rhythm GI: GI Palp: Yes Soft to palpation Auscultation: Hyperactive bowel sounds present : General: Yes bladder normal to palpation Skin: General skin exam: normal color Rashes: no rashes Wounds: no wounds Neuro: General: patient oriented x3 and moves all extremities Speech: normal speech Gait exam (Neuro): Normal gait present Extrem: General: normal to inspection Psych: Mental Status: mental status grossly normal Affect: normal affect Attitude: cooperative Course Vital Signs Vital signs: Vital Signs Temperature 36.3 C L 01/23/25 18:10 Pulse Rate 64 01/23/25 18:10 Respiratory Rate 20 01/23/25 18:10 Blood Pressure 136/90 01/23/25 18:10 Pulse Oximetry 99 01/23/25 18:10 Oxygen Delivery Room Air 01/23/25 18:10 Temperature 36.3 C L 01/23/25 18:10 Pulse Rate 55 L 01/23/25 19:56 Respiratory Rate 16 01/23/25 19:56 Blood Pressure 142/92 H 01/23/25 19:56 Pulse Oximetry 99 01/23/25 19:56 Oxygen Delivery Room Air 01/23/25 19:56 MDM - Abdominal Pain MDM Narrative Medical decision making narrative: CBC unremarkable, showing no signs of infection white count normal. CT abdomen and pelvis shows no sign of obstruction. Patient to be released with instructions on medications to assist defecation. Patient requesting to take medication at home. Differential Diagnosis Differential diagnosis: Likely abdominal pain, calculus of kidney, constipation, diverticulitis, gastroenteritis and small bowel obstruction Medical Records Attestation: I reviewed the patient's medical records. Lab Data Attestation: I reviewed the patient's lab results. Imaging Data Radiologist's impression: ITS Impressions Abdomen/Pelvis CT 01/23/25 22:03 Impression: Asymmetric prominence of the right seminal vesicle. Mass lesion not completely excluded. Consider additional workup as indicated. No other significant findings. Discharge Plan Discharge Clinical Impression: Constipation Qualifiers: Constipation type: unspecified constipation type Qualified Code(s): K59.00 - Constipation, unspecified Patient Disposition: Home Condition: Stable Instructions: Antibiotic Form, Constipation (ED), Abdominal Pain (ED) Additional Instructions: You may take magnesium citrate [id number] to help with bowel movements. If that does not work you may try Dulcolax Suppository or Fleet's enema. Be sure to hydrate and follow up with primary care Patient Language: Filipino Prescriptions: No Action timolol 0.5 % drops 1 drp EACH EYE Q12H latanoprost 0.005 % drops EACH EYE DAILY amlodipine 5 mg tablet See Rx Instructions .ROUTE .COMPLEX Qty: 90 1RF Dose Instruction: TAKE ONE TABLET BY MOUTH EVERY DAY Rx Instructions: TAKE ONE TABLET BY MOUTH EVERY DAY lisinopril 40 mg tablet See Rx Instructions .ROUTE .COMPLEX Qty: 90 1RF Dose Instruction: TAKE ONE TABLET BY MOUTH EVERY DAY Rx Instructions: TAKE ONE TABLET BY MOUTH EVERY DAY atorvastatin 10 mg tablet See Rx Instructions .ROUTE .COMPLEX Qty: 90 1RF Dose Instruction: TAKE ONE TABLET BY MOUTH EVERY EVENING AT BEDTIME Rx Instructions: TAKE ONE TABLET BY MOUTH EVERY EVENING AT BEDTIME Follow-up/Referrals: Cara Cordoba DO [Primary Care Provider] - 1 Week
[2025-01-23 20:17] LABS: Hematocrit 41.9 % (42.0-52.0); Hemoglobin 15.0 g/dL (14.0-18.0); Immature Granulocyte Percent A 0.1 % (0-0.5); Lymphocytes Absolute Auto 2.37 K/mm3 (0.9-3.2); Mean Corpuscular HGB Conc 35.8 g/dl (32-36); Mean Corpuscular Hemoglobin 31.8 pg (26-34); Mean Corpuscular Volume 88.8 fl (80-100); Nucleated Red Blood Cells Absolute Auto 0.000 K/mm3 (0.0-0.012); Nucleated Red Blood Cells Perc 0.0 % (0.0-0.2); Platelet Count Result 212 k/mm3 (150-375); Red Blood Count 4.72 M/mm3 (4.6-6.20); White Blood Count 7.1 K/mm3 (4.5-10.0)
[2025-01-23 20:27] LABS: Alanine Aminotransferase 26 U/L (6-50); Albumin Level 4.8 g/dL (3.5-5.1); Alkaline Phosphatase 62 U/L (38-126); Anion Gap 10 mmol/L (4-12); Aspartate Amino Transferase 38 U/L (17-59); Bilirubin,Total 2.2 mg/dL (0.2-1.3); Blood Urea Nitrogen 12 mg/dL (9-20); Calcium 9.7 mg/dL (8.4-10.2); Carbon Dioxide 24 mmol/L (22-30); Chloride 96 mmol/L (98-107); Estimated CRCL calculation 79 ml/min; Estimated Glomerular Filt Rate > 60; Glucose 84 mg/dL (65-110); Lipase 77 U/L (23-300); Potassium 4.0 mmol/L (3.4-5.0); Sodium 130 mmol/L (137-145); Total Protein 8.3 g/dL (6.3-8.2)
--- OUTSIDE RECORDS SUMMARY | 2025-01-23 20:54 | XMS_ITS | Referral Summary ---
Author Organization [facility] Medical Office Building B Address [address] [place] [address] Care Team Providers Care Director Enterprise Data Architecture Name Role Phone Cara Cordoba DO Primary Care Provider [phone] Don Avila PA Unavailable [phone] Encounters Date Type Department Care Team Description 10/29/2024 Results Follow-Up [facility] Specialists [facility] [id number] [place] [phone] Joe Roper MD Sodium level 10/28/2024 8:16 PM CDT - 10/28/2024 11:59 PM CDT Hospital Encounter [facility] [id number] [place] [address] Chronic hyponatremia Discharge Disposition: Discharge to home or self care 10/28/2024 3:15 PM CDT Lab [facility] Outpatient Lab at [address] [phone] Class 1 obesity due to excess calories [...] (05/17/2022): Added automatically from request for surgery [id number] Chronic hyponatremia 03/02/2022 Assessment & Plan (03/23/2024 [...] (02/23/2022): Added automatically from request for surgery [id number] Complex tear of medial menis cus of right knee as current injury 01/23/2018 Overview (01/23/2018): Added automatically from request for surgery [id number] Tear of medial meniscus of l eft knee, current, initial encounter 08/23/2017 Overview (08/23/2017): Added automatically from request for surgery [id number] Vitiligo 05/14/2017 Lentigo 02/28/2016 Referred otalgia 11/23/2011 [...] on file Legal Sex Male 4:55 AM CONSOLIDATOR Gender Identity Not on file Sexual Orientation Not on file 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 Not on file Not on fi le Last Filed Vital Signs Vital Sign Reading Time Taken Comments Blood Pressure 137/96 07/10/2024 9:22 AM CONSOLIDATOR Pulse 92 07/10/2024 9:22 AM CONSOLIDATOR Temperature 36.6 C (97.9 F) 06/12/2022 3:00 PM CONSOLIDATOR Respiratory Rate 16 03/16/2024 9:29 AM CDT Oxygen Saturation 97% 06/12/2022 3:00 PM CONSOLIDATOR Inhaled Oxygen Concentration - - Weight 96.2 kg (212 lb) 07/10/2024 9:22 AM CONSOLIDATOR Height 167.6 cm (5' 6) 07/10/2024 9:22 AM CONSOLIDATOR Body Mass Index 34.22 07/10/2024 9:22 AM CONSOLIDATOR Plan of Treatment Not on file Medical Devices Implanted Type Area Cpr Instructor Device Identifier Shelf Expiration Date Model / Serial / Lot Depuy [employer] Attune 5mm Cruciate Retaining Fix Bearing Knee 6 Insert Tibial [id number] - [id number] Implanted:Qty: 1 on 03/15/2022 by Luisito Gallardo MD at [facility] Left: Knee [employer] 08/07/2026 [id number] / / [id number] [employer] Attune Fb Tib Base Sz 6 Por [id number] - [id number] Implanted:Qty: 1 on 03/15/2022 by Luisito Gallardo MD at [facility] Left: Knee [employer] 07/07/2031 [id number] / / [id number] [employer] Attune Cruciate Retain Cementless Knee Left 6 Component Femoral [id number] - [id number] Implanted:Qty: 1 on 03/15/2022 by Luiisto Gallardo MD at [facility] Left: Knee [employer] 03/07/2031 [id number] / / [id number] [employer] Attune Cruciate Retain Cementless Knee Right 6 Component Femoral [id number] - [id number] Implanted:Qty: 1 on 06/12/2022 by Luisito Gallardo MD at [facility] Right: Knee [employer] [id number] 11/05/2031 [id number] / / [id number] [employer] Attune Fb Tib Base Sz 6 Por [id number] - [id number] Implanted:Qty: 1 on 06/12/2022 by Luisito Gallardo MD at [facility] Right: Knee [employer] [id number] 12/06/2031 [id number] / / [id number] Attune Knee System Tibial Insert Fixed Bearing Medial Stabilized Size 6 Right 6 Mm Aox Ref [id number] Implanted:Qty: 1 on 06/12/2022 by Luisito Gallardo MD at [facility] Right: Knee [employer] [id number] 01/05/2032 / / [id number] Procedures Procedure Name Priority Date/Time Associated Diagnosis Comments SODIUM LEVEL Routine 10/28/2024 12:00 PM CDT Chronic hyponatremia from Last 3 Months Results * (ABNORMAL) Sodium level (10/28/2024 12:00 PM CDT) Sodium 132(L) 135 - 145 mmol/L Blood 10/28/2024 12:0 0 PM CDT 10/28/2024 8:27 PM CDT us Kwabenaja Kannan Brunner MD LAB BLOOD [place] [address] [address] Department [place] [address] from Last 3 Months Insurance [facility] AETNA SIGNATURE CIGNA CIGNA Care Teams Director Enterprise Data Architecture Relationship Specialty Start Date End Date Cara Cordoba DO PCP - General Family Medicine 11/23/21 Don Avila PA [address] [place] [address] [place] [address] Physician Stockroom Inventory Clerk Orthopedic Surgery 03/15/22
--- OUTSIDE RECORDS SUMMARY | 2025-01-23 20:54 | XMS_ITS | Continuity of Care Document ---
Author Organization [employer] [place] Address [address] [place] [address] [address] [place] [address] Phone Care Team Providers Care Housekeeper Cleaning Cooking Name Role Phone Ca PT,MPT,ATC, Seferino Unavailable [...] Activities Neuromuscular Re-Ed Therapeutic Exercise Manual Therapy Manual Therapy Therapeutic Activities Neuromuscular Re-Ed Therapeutic Exercise Therapeutic Activities Therapeutic Exercise Manual Therapy Therapeutic Activities Manual Therapy Therapeutic Exercise Therapeutic Activities Therapeutic Exercise Manual Therapy Therapeutic Activities Therapeutic Exercise Manual Therapy Therapeutic Activities Manual Therapy Therapeutic Exercise Therapeutic Activities Therapeutic Exercise Manual Therapy Therapeutic Exercise Therapeutic Activities Manual Therapy PT Evaluation Moderate Complexity Therapeutic Exercise Therapeutic Activities Therapeutic Activities Neuromuscular Re-Ed Therapeutic Exercise Therapeutic Activities Neuromuscular Re-Ed Manual Therapy Therapeutic Exercise Neuromuscular Re-Ed Therapeutic Activities Therapeutic Exercise Manual Therapy Neuromuscular Re-Ed Therapeutic Activities Manual Therapy Therapeutic Exercise Therapeutic Activities Neuromuscular Re-Ed Therapeutic [...] Diagnoses Date Provider Providers Copied on Encounter [facility], [place], [place], [id number], tel:[phone] [place] No Information 5 [place], [place], . Referring Provider: Earl Blankenship [address], [place], [address]. tel:[phone] [facility], [place], [place], [address], tel:[phone] [place] No Information 5 Corrie Rust. . Referring Provider: Earl Blankenship, [address], [place], [address]. tel:[phone] [facility], [place], [place], [address], [place] tel:[phone] [place] No Information 5 Corrie Rust. . Referring Provider: Earl Blankenship, [address], [place], [address]. tel:[phone] [facility], [place], [place], [address], [place] tel:[phone] [place] No Information 5 Ca Sefer[place]. , [place], [place]. Referring Provider: Earl Blankenship, [address], [place], [address]. tel:[phone] [facility], [place], [place], [address], [place] tel:[phone] [place] No Information 4 Ca Sefer[place]. , [place], [place]. Referring Provider: [employer]. [facility], [place], [place], [address], [place] tel:[phone] [place] No Information 4 Ca Sefer[place]. , [place], [place]. Referring Provider: [employer]. [facility], [place], [place], [address], [place] tel:[phone] [place] No Information 4 Ca Sefer[place]. , [place]. Referring Provider: [facility] [employer]. [facility], [place], [place], [address], [place] tel:[phone] [place] No Information 4 Roby Samsonn. , [place], [place]. Referring Provider: [employer]. [facility], [place], [place], [address], [place] tel:[phone] [place] No Information 4 Roby Samsonn. , [place], [place]. Referring Provider: [employer]. [facility], [place], [place], [address], [place] tel:[phone] [place] No Information 3 Roby Borjas , [place], [place]. Referring Provider: Luisito Gallardo, [address] [facility] [address], [place], [address]. tel:[phone] [facility], [address], [place], [place], [address], [place] tel:[phone] [place] No Information 3 Roby Borjas , [place], [place]. Referring Provider: Luisito Gallardo, [address] [facility] [address], [place], [address]. tel:[phone] [facility], [address], [place], [place], [address], [place] tel:[phone] [place] No Information 3 Roby Borjas , [place], [place]. Referring Provider: Luisito Gallardo, 4 [facility] [address] [facility] [address], [place], [address]. tel:[phone] [facility], [place], [place], [address], [place] tel:[phone] [place] No Information 3 Roby Borjas , [place], [place]. Referring Provider: Luisito Gallardo, 4 [facility] [address] [facility] [address], [place], [address]. tel:[phone] [facility], [place], [place], [address], [place] tel:[phone] [place] No Information 3 Roby Borjas , [place]. Referring Provider: Luisito Gallardo, [address] [facility] [address], [place], [address]. tel:[phone] [facility], [place], [place], [address], [place] tel:[phone] [place] No Information 3 Roby Borjas , [place]. Referring Provider: Luisito Gallardo, [address] [facility] [address], [place], [address]. tel:[phone] [facility], [address], [place], [place], [address], [place] tel:[phone] [place] No Information 0 3 Roby Borjas , [place]. Referring Provider: Luisito Gallardo, 4 [facility] [address] [facility] [address], [place], [address]. tel:[phone] [facility], [address], [place], [place], [address], [place] tel:[phone] [place] No Information 0 3 Roby Borjas , [place]. Referring Provider: Luisito Gallardo, 4 [facility] [address] [facility] [address], [place], [address]. tel:[phone] [facility], [address], [place], [place], [address], [place] tel:[phone] [place] No Information 0 3 Rowena Godinez. . Referring Provider: Luisito Gallardo, 4 [facility] [address] [facility] [address], [place], [address]. tel:[phone] [facility], [place], [place], [address], [place] tel:[phone] [place] No Information 0 3 Roby Borjas , [place]. Referring Provider: Luisito Gallardo, 4 [facility] [address] [facility] [address], [place], [address]. tel:[phone] [facility], [address], [place], [place], [address], [place] tel:[phone] [place] No Information 3 Roby Borjas , [place]. Referring Provider: Luisito Gallardo, 4 [facility] [address] [facility] [address], [place], [address]. tel:[phone] [facility], [place], [place], [address], [place] tel:[phone] [place] No Information 3 Roby Gentile , [place]. Referring Provider: Luisito Gallardo, 4 [facility] [address] [facility] [address], [place], [address]. tel:[phone] [facility], [address], [place], [place], [address], [place] tel:[phone] [place] No Information 3 Roby Gentile , [place]. Referring Provider: Luisito Gallardo, 4 [facility] [address] [facility] [address], [place], [address]. tel:[phone] [facility], [address], [place], [place], [address], [place] tel:[phone] [place] No Information 3 Roby Gentile , [place]. Referring Provider: Luisito Gallardo, 4 [facility] [address] [facility] [address], [place], [address]. tel:[phone] [facility], [address], [place], [place], [address], [place] tel:[phone] [place] No Information 3 Roby Gentile , [place]. Referring Provider: Luisito Gallardo, 4 [facility] [address] [facility] [address], [place], [address]. tel:[phone] [facility] [address], [place], [place], [address], [place] tel:[phone] [place] No Information 3 Rowena Godinez. . Referring Provider: Luisito Gallardo, 4 [facility] [address] [facility] [address], [place], [address]. tel:[phone] [facility], [place], [place], [address], [place] tel:[phone] [place] No Information 3 Rowena Godinez. . Referring Provider: Luisito Gallardo, 4 [facility] [address], [place], [address]. tel:[phone] [facility], [address], [place], [place], [address], [place] tel:[phone] [place] No Information 3 [place], . Referring Provider: Luisito Gallardo, 4 [facility] [address] [facility] [address], [place], [address]. tel:[phone] [facility], [address], [place], [place], [address], [place] tel:[phone] [place] No Information 2 Keithn Herbert. . Referring Provider: Luisito Gallardo, 4 [facility] [address] [facility] [address], [place], [address]. tel:[phone] [facility], [address], [place], [place], [address], [place] tel:[phone] [place] No Information 2 Keithn Herbert. . Referring Provider: Luisito Gallardo, 4 [facility] [address] [facility] [address], [place], [address]. tel:[phone] [facility], [place], [place], [address], [place] tel:[phone] [place] No Information 2 Rowena Godinez. . Referring Provider: Luisito Gallardo, 4 [facility] [address] [facility] [address], [place], [address]. tel:[phone] [facility], [address], [place], [place], [address], [place] tel:[phone] [place] No Information 2 Keithn Herbert. . Referring Provider: Luisito Gallardo, 4 [facility] [address] [facility] [address], [place], [address]. tel:[phone] [facility], [place], [place], [address], [place] tel:[phone] [place] No Information Jun- 2 Klahn Herbert. . Referring Provider: Luisito Gallardo, 4 [facility] [address], [place], [address]. tel:[phone] [facility], [address], [place], [place], [address], [place] tel:[phone] [place] No Information Jun- 2 Maria Fernanda Rosen. [address] [facility], [address], [place], [address], [place]. tel:[phone] Referring Provider: Luisito Gallardo, 4 [facility] [address], [place], [address]. tel:[phone] [facility], [address], [place], [place], [address], [place] tel:[phone] [place] No Information 3 2 Klahn Herbert. . Referring Provider: Luisito Gallardo, 4 [facility] [address], [place], [address]. tel:[phone] [facility], [address], [place], [place], [address], [place] tel:[phone] [place] No Information 2 Klahn Herbert. . Referring Provider: Luisito Gallardo, 4 [facility] [address] [facility] [address], [place], [address]. tel:[phone] [facility], [place], [place], [address], [place] tel:[phone] [place] No Information Nov-2 2 Klahn Herbert. . Referring Provider: Luisito Gallardo, 4 [facility] [address], [place], [address]. tel:[phone] [facility], [address], [place], [place], [address], [place] tel:[phone] [place] No Information Nov-2 2 Klahn Herbert. . Referring Provider: Luisito Gallardo, 4 [facility] [address], [place], [address]. tel:[phone] [facility], [address], [place], [place], [address], [place] tel:[phone] [place] No Information 2 Roby Gentile. , [place], [place]. Referring Provider: Luisito Gallardo, [address] [facility] [address], [place], [address]. tel:[phone] [facility], [address], [place], [place], [address], [place] tel:[phone] [place] No Information 2 Roby Gentile. , [place]. Referring Provider: Luisito Gallardo, 4 [facility] [address], [place], [address]. tel:[phone] [facility], [address], [place], [place], [address], [place] tel:[phone] [place] No Information Nov-0 2 Roby Gentile. , [place]. Referring Provider: Luisito Gallardo, [address] [facility] [address], [place], [address]. tel:[phone] [facility], [address], [place], [place], [address], [place] tel:[phone] [place] No Information Nov0 2 Roby Samsonn. , [place]. Referring Provider: Luisito Gallardo, 4 [facility] [address], [place], [address]. tel:[phone] [facility], [address], [place], [place], [address], [place] tel:[phone] [place] No Information Nov-0 2 Roby Gentile. , [place]. Referring Provider: Luisito Gallardo, [address] [facility] [address], [place], [address]. tel:[phone] [facility], [address], [place], [place], [address], [place] tel:[phone] [place] No Information 2 Roby Gentile. , [place]. Referring Provider: Luisito Gallardo, 4 [facility] [address] [facility] [address], [place], [address]. tel:[phone] [facility], [place], [place], [address], [place] tel:[phone] [place] No Information 2 Roby Gentile. , [place]. Referring Provider: Luisito Gallardo, 4 [facility] [address] [facility] [address], [place], [address]. tel:[phone] [place] [address], [address], [place], [place], [address], [place] tel:[phone] [place] No Information 2 Roby Gentile. , [place]. Referring Provider: Luisito Gallardo, 4 [facility] [address] [facility] [address], [place], [address]. tel:[phone] [facility], [address], [place], [place], [address], [place] tel:[phone] [place] No Information 2 Roby Gentile. , [place]. Referring Provider: Luisito Gallardo, 4 [facility] [address] [facility] [address], [place], [address]. tel:[phone] [facility], [place], [place], [address], [place] tel:[phone] [place] No Information 2 Roby Gentile. , [place]. Referring Provider: Luisito Gallardo, 4 [facility] [address], [place], [address]. tel:[phone] [facility], [address], [place], [place], [address], [place] tel:[phone] [place] No Information Apr-07 09- 2 Ca Seferino. , [place]. Referring Provider: Luisito Gallardo, 4 [facility] [address] [facility] [address], [place], [address]. tel:[phone] [facility], [address], [place], [place], [address], [place] tel:[phone] [place] No Information Oct-1 0 2 Ca Seferino. , [place]. Referring Provider: Luisito Gallardo, 4 [facility] [address] [facility] [address], [place], [address]. tel:[phone] [facility] [address], [place], [place], [address], [place] tel:[phone] [place] No Information Oct-0 2 [facility] [place] Referring Provider: Luisito Gallardo, 4 [facility] [address] [facility] [address], [place], [address]. tel:[phone] [facility], [address], [place], [place], [address], [place] tel:[phone] [place] No Information Oct-0 2 [facility] , [place]. Referring Provider: Luisito Gallardo, 4 [facility] [address] [facility] [address], [place], [address]. tel:[phone] [facility] [address], [place], [place], [address], [place] tel:[phone] [place] No Information Sep-2 2 [facility] , [place], [place]. Referring Provider: Luisito Gallardo, 4 [facility] [address] [facility] [address], [place], [address]. tel:[phone] [facility] [address], [place], [place], [address], [place] tel:[phone] [place] No Information Sep-2 2 [facility] [place]. Referring Provider: Luisito Gallardo, 4 [facility] [address] [facility] [address], [place], [address]. tel:[phone] [facility], [address], [place], [place], [address], [place] tel:[phone] [place] No Information Sep-2 2 Rowena Godinez. . Referring Provider: Luisito Gallardo, 4 [facility] [address], [place], [address]. tel:[phone] [facility], [address], [place], [place], [address], [place] tel:[phone] [place] No Information Sep-1 2 Rowena Godinez. . Referring Provider: Luisito Gallardo, 4 [facility] [address] [facility] [address], [place], [address]. tel:[phone] [facility], [address], [place], [place], [address], [place] tel:[phone] [place] No Information Sep- 2 Rowena Godinez. . Referring Provider: Luisito Gallardo, 4 [facility] [address], [place], [address]. tel:[phone] [facility], [place], [place], [address], [place] tel:[phone] [place] No Information Benny-3 2 [place], [place]. Referring Provider: Vick Quiñones, [facility] [facility], [place], [address]. tel:[phone] [facility], [address], [place], [place], [address], [place] tel:[phone] [place] No Information Dec-2 2 [place] Referring Provider: Vick Quiñones, [address] [facility], [place], [address]. tel:[phone] [facility], [address], [place], [place], [address], [place] tel:[phone] [place] No Information 2 Ca Seferino. , [place]. Referring Provider: Vick Quiñones, [address] [facility] [address], [place], [address]. tel:[phone] [facility], [place], [place], [address], [place] tel:[phone] [place] No Information 2 Ca Seferino. , [place]. Referring Provider: Vick Quiñones, [address] [facility] [facility] [address], [place], [address]. tel:[phone] [facility], [address], [place], [place], [address], [place] tel:[phone] [place] No Information 2 Ca Seferino. , [place]. Referring Provider: Vick Quiñones, [address] [facility] [facility] [address], [place], [address]. tel:[phone] [facility], [place], [place], [address], [place] tel:[phone] [place] No Information 2 Ca Sefer[place]. , [place]. Referring Provider: Vick Quiñones, [address] [facility] [facility] [address], [place], [address]. tel:[phone] [facility], [place], [place], [address], [place] tel:[phone] [place] Pain in right kneeStiffness of right knee, not elsewhere classifiedOth symptoms and signs involving the musculoskelet al systemOther abnormalities of gait and mobilityOther specified postprocedura l states 0 8 Ca Seferino. , [place], [place]. [facility], [place], [place], [address], [place] tel:[phone] [place] Pain in right kneeStiffness of right knee, not elsewhere classifiedOth symptoms and signs involving the musculoskelet al systemOther abnormalities of gait and mobilityOther specified postprocedura l states 8 Ca Seferino. , [place]. [facility], [place], [place], [address], [place] tel:[phone] [place] Pain in right kneeStiffness of right knee, not elsewhere classifiedOth symptoms and signs involving the musculoskelet al systemOther abnormalities of gait and mobilityOther specified postprocedura l states 8 Roby Borjas [place], [place]. [facility], [place], [place], [address], [place] tel:[phone] [place] Pain in right kneeStiffness of right knee, not elsewhere classifiedOth symptoms and signs involving the musculoskelet al systemOther abnormalities of gait and mobilityOther specified postprocedura l states 8 Beatriz Roger. . [facility], [place], [place], [address], [place] tel:[phone] [place] Pain in right kneeStiffness of right knee, not elsewhere classifiedOth symptoms and signs involving the musculoskelet al systemOther abnormalities of gait and mobilityOther specified postprocedura l states 8 Roby Gentile. , [place]. [facility], [place], [place], [address], [place] tel:[phone] [place] Pain in right kneeStiffness of right knee, not elsewhere classifiedOth symptoms and signs involving the musculoskelet al systemOther abnormalities of gait and mobilityOther specified postprocedura l states 8 Roby Gentile. , [place]. [facility], [place], [place], [address], [place] tel:[phone] [place] Pain in right kneeStiffness of right knee, not elsewhere classifiedOth symptoms and signs involving the musculoskelet al systemOther abnormalities of gait and mobilityOther specified postprocedura l states 8 Roby Borjas , [place]. [facility], [place], [place], [address], [place] tel:[phone] [place] Pain in right kneeStiffness of right knee, not elsewhere classifiedOth symptoms and signs involving the musculoskelet al systemOther abnormalities of gait and mobilityOther specified postprocedura l states 0 8 Threlkeld Rema. . [facility] [facility], [place], [place], [address], tel:[phone] [place] Encounter for other specified aftercareUnsp tear of unsp meniscus, current injury, left knee, subsPain in left knee 8 [place]. [facility], [place], [place], [address], tel:[phone] [place] No Information 7 [place], . Referring Provider: Physician Screen. [facility] [facility] [facility], [place], [place], [address], tel:[phone] [place] No Diagnosis 7 [place], . Referring Provider: Physician Screen. Family [...]
--- OUTSIDE RECORDS SUMMARY | 2025-01-23 20:54 | XMS_ITS | Clinical Summary ---
Author Organization [facility] B Address [address] [place] [address] Care Team Providers Care Fish Drier Name Role Phone Cara Cordoba DO Primary Care Provider [phone] Don Avila Unavailable [phone] Allergies No known active allergies Medications clobetasoL [...] (05/17/2022): Added automatically from request for surgery [id number] Chronic hyponatremia 03/02/2022 Assessment & Plan (03/23/2024 [...] (02/23/2022): Added automatically from request for surgery [id number] Complex tear of medial menis cus of right knee as current injury 01/23/2018 Overview (01/23/2018): Added automatically from request for surgery [id number] Tear of medial meniscus of l eft knee, current, initial encounter 08/23/2017 Overview (08/23/2017): Added automatically from request for surgery [id number] Vitiligo 05/14/2017 Lentigo 02/28/2016 Referred otalgia 11/23/2011 Actinic keratosis 10/25/2010 Encounters Date Type Department Care Team Description 10/29/2024 Results Follow-Up [facility] Specialists of [address] [id number] Joe Roper MD Sodium level 10/28/2024 8:16 PM CDT - 10/28/2024 11:59 PM CDT Hospital Encounter [facility] [address] [place] [address] Chronic hyponatremia Discharge Disposition: Discharge to home or self care 10/28/2024 3:15 PM CDT Lab [facility] Outpatient Lab at [address] [address] Class 1 obesity due to [...] on file Legal Sex 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 Gender Identity Not on file Sexual Orientation Not on file 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 Not on file Not on fi le Obstetrics History Last Filed Vital Signs Vital Sign Reading Time Taken Comments Blood Pressure 137/96 07/10/2024 9:22 AM ACCOUNTING MANAGER ASSISTANT CONTROLLER Pulse 92 07/10/2024 9:22 AM ACCOUNTING MANAGER ASSISTANT CONTROLLER Temperature 36.6 C (97.9 F) 06/12/2022 3:00 PM ACCOUNTING MANAGER ASSISTANT CONTROLLER Respiratory Rate 16 03/16/2024 9:29 AM CDT Oxygen Saturation 97% 06/12/2022 3:00 PM ACCOUNTING MANAGER ASSISTANT CONTROLLER Inhaled Oxygen Concentration - - Weight 96.2 kg (212 lb) 07/10/2024 9:22 AM ACCOUNTING MANAGER ASSISTANT CONTROLLER Height 167.6 cm (5' 6) 07/10/2024 9:22 AM ACCOUNTING MANAGER ASSISTANT CONTROLLER Body Mass Index 34.22 07/10/2024 9:22 AM ACCOUNTING MANAGER ASSISTANT CONTROLLER Plan of Treatment Health Maintenance Due Date [...] this topic Medical Devices Implanted Type Area Content Strategy Lead Device Identifier Shelf Expiration Date Model / Serial / Lot Depuy [employer] Attune 5mm Cruciate Retaining Fix Bearing Knee 6 Insert Tibial [id number] - [id number] Implanted:Qty: 1 on 03/15/2022 by Luisito Gallardo MD at [facility] Left: Knee [employer] 08/07/2026 [id number] / / [id number] [employer] Attune Fb Tib Base Sz 6 Por [id number] - [id number] Implanted:Qty: 1 on 03/15/2022 by Luisito Gallardo MD at [facility] Left: Knee [employer] 07/07/2031 [id number] / / [id number] [employer] Attune Cruciate Retain Cementless Knee Left 6 Component Femoral [id number] - [id number] Implanted:Qty: 1 on 03/15/2022 by Luisito Gallardo MD at [facility] Left: Knee [employer] 03/07/2031 [id number] / / [id number] [employer] Attune Cruciate Retain Cementless Knee Right 6 Component Femoral [id number] - [id number] Implanted:Qty: 1 on 06/12/2022 by Luisito Gallardo MD at [facility] Right: Knee [employer] [id number] 11/05/2031 [id number] / / [id number] [employer] Attune Fb Tib Base Sz 6 Por [id number] - [id number] Implanted:Qty: 1 on 06/12/2022 by Luisito Gallardo MD at [facility] Right: Knee [employer] [id number] 12/06/2031 [id number] / / [id number] Attune Knee System Tibial Insert Fixed Bearing Medial Stabilized Size 6 Right 6 Mm Aox Ref 1520-20-606 Implanted:Qty: 1 on 06/12/2022 by Luisito Gallardo MD at [facility] Right: Knee [employer] [id number] 01/05/2032 / / [id number] Procedures Procedure Name Priority Date/Time Associated Diagnosis Comments SODIUM LEVEL Routine 10/28/2024 12:00 PM CDT Chronic hyponatremia from Last 3 Months Results * (ABNORMAL) Sodium level (10/28/2024 12:00 PM CDT) Sodium 132(L) 135 - 145 mmol/L Blood 10/28/2024 12:0 0 PM CDT 10/28/2024 8:27 PM CDT us Joe Brunner MD LAB BLOOD ORDER[place] [id number] [address] [place] [address] from Last 3 Months Insurance [facility] AETNA SIGNATURE [employer] Address: [address] [place] [address] [employer] Address: [facility] [id number] [place] [address] Care Teams Fish Drier Relationship Specialty Start Date End Date Cara Cordoba DO PCP - General Family Medicine 11/23/21 Don Avila PA [address] [facility] [address] [place] [address] Physician Mine Superintendent Orthopedic Surgery 03/15/22
--- OUTSIDE RECORDS SUMMARY | 2025-01-23 20:54 | XMS_ITS | Continuity of Care Document ---
Author Organization [facility] Address [address] [place] [address] Phone Care Team Providers Care Desolderer Name Role Phone Vick Gallo MD Unavailable Unavailable Allergies, Adverse Reactions, Alerts Substance Reaction Status Criticality No Known Allergies Active No Inform ation Medications Medication Instructions Dosage Effective Dates (start - stop) Status Comments No Drug Therapy Prescribed Procedures Procedure Date X-ray exam ankle, minimum 3 views Office/outpatient visit,[facility] 2014 Advance Directives Directive Yes / No Effective Date File Name No Information Encounters Encounter Description Practice Location Reason(s) For Visit Diagnoses Date Provider Providers Copied on Encounter [facility], [address], [id number], tel:[phone] [facility] No Information 5 Sabino Hickman. [address] [facility], [address], [id number] , [place]. tel:[phone] Office/outpat ient visit,[facility], [address], [id number], tel:[phone] [facility] JOINT PAIN-ANKLEAch illes bursitis or tendinitis 0 5 Sabino Hickman. [address] [facility], [address], [id number] , [place]. tel: [phone] Family History Family Member Type Diagnosis Age At Onset Father Problem (finding) malignant neoplasm of l jaylan Mother Problem (finding) malignant neoplasm of l jaylan Payers Payer name Insurance type Covered alliance party ID Authorfabio win(s) Uriel Blue Cross Blue Shiel d [place] BL [id number] Social History Type Description Quantity Date Captured [...]
== END 2025-01-23 23:42 | disposition home or self-care (01) ==
PROVIDERS: Emergency Provider Registered Nurse Emergency; PCP Family Medicine
DX: K59.00 Constipation, unspecified (principal); I10 Essential (primary) hypertension; E78.5 Hyperlipidemia, unspecified; Z87.891 Personal history of nicotine dependence
CPT/HCPCS: 36415; 74176; 80053; 83690; 85025; 99284

== ENCOUNTER 2025-02-08 13:59 | Outpatient (CLI) | payer OTHER, SELFPAY ==
--- NOTE | ~2025-02-08 | XR_ITS ---
XR abdomen/kub 1V 02/08/2025 14:22 INDICATION: Bloating TECHNIQUE: KUB COMPARISON: None FINDINGS: Bowel gas pattern is normal. There is no evidence of free air, mass, organomegaly, ascites or obstruction. No abnormal calculi are seen. There are pelvic phleboliths. The bones appear intact . IMPRESSION: 1: No acute abdominal abnormality identified. Reviewed, dictated and finalized at location A.
--- OUTSIDE RECORDS SUMMARY | 2025-02-08 14:12 | XMS_ITS | Referral Summary ---
Author Organization [facility] Building B Address [address] [place] [address] Care Team Providers Care Office Engineer Name Role Phone Cara Cordoba DO Primary Care Provider [phone] Don Avila Unavailable [phone] Allergies No known active allergies Medications clobetasoL [...] (05/17/2022): Added automatically from request for surgery [id number] Chronic hyponatremia 03/02/2022 Assessment & Plan (03/23/2024 [...] (02/23/2022): Added automatically from request for surgery [id number] Complex tear of medial menis cus of right knee as current injury 01/23/2018 Overview (01/23/2018): Added automatically from request for surgery [id number] Tear of medial meniscus of l eft knee, current, initial encounter 08/23/2017 Overview (08/23/2017): Added automatically from request for surgery [id number] Vitiligo 05/14/2017 Lentigo 02/28/2016 Referred otalgia 11/23/2011 [...] on file Legal Sex Male 4:55 AM ERP MANAGER Gender Identity Not on file Sexual Orientation Not on file 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 Not on file Not on fi le Last Filed Vital Signs Vital Sign Reading Time Taken Comments Blood Pressure 137/96 07/10/2024 9:22 AM ERP MANAGER Pulse 92 07/10/2024 9:22 AM ERP MANAGER Temperature 36.6 C (97.9 F) 06/12/2022 3:00 PM ERP MANAGER Respiratory Rate 16 03/16/2024 9:29 AM CDT Oxygen Saturation 97% 06/12/2022 3:00 PM ERP MANAGER Inhaled Oxygen Concentration - - Weight 96.2 kg (212 lb) 07/10/2024 9:22 AM ERP MANAGER Height 167.6 cm (5' 6) 07/10/2024 9:22 AM ERP MANAGER Body Mass Index 34.22 07/10/2024 9:22 AM ERP MANAGER Plan of Treatment Not on file Medical Devices Implanted Type Area Health Promotion Specialist Device Identifier Shelf Expiration Date Model / Serial / Lot Depuy [employer] Attune 5mm Cruciate Retaining Fix Bearing Knee 6 Insert Tibial [id number] - [id number] Implanted:Qty: 1 on 03/15/2022 by Luisito Gallardo MD at [facility] Left: Knee [employer] 08/07/2026 [id number] / / [id number] [employer] Attune Fb Tib Base Sz 6 Por [id number] - [id number] Implanted:Qty: 1 on 03/15/2022 by Luisito Gallardo MD at [facility] Left: Knee [employer] 07/07/2031 [id number] / / [id number] [employer] Attune Cruciate Retain Cementless Knee Left 6 Component Femoral [id number] - [id number] Implanted:Qty: 1 on 03/15/2022 by Luisito Gallardo MD at [facility] Left: Knee [employer] 03/07/2031 [id number] / / [id number] [employer] Attune Cruciate Retain Cementless Knee Right 6 Component Femoral [id number] - [id number] Implanted:Qty: 1 on 06/12/2022 by Luisito Gallardo MD at [facility] Right: Knee [employer] [id number] 11/05/2031 [id number] / / [id number] [employer] Attune Fb Tib Base Sz 6 Por [id number] - [id number] Implanted:Qty: 1 on 06/12/2022 by Luisito Gallardo MD at [facility] Right: Knee [employer] [id number] 12/06/2031 [id number] / / [id number] Attune Knee System Tibial Insert Fixed Bearing Medial Stabilized Size 6 Right 6 Mm Aox Ref 1520-20-606 Implanted:Qty: 1 on 06/12/2022 by Luisito Gallardo MD at [facility] Right: Knee [employer] [id number] 01/05/2032 / / [id number] Insurance [facility] AETNA SIGNATURE CIGNA CIGNA Care Teams Office Engineer Relationship Specialty Start Date End Date Cara Cordoba DO PCP - General Family Medicine 11/23/21 Don Avila PA [address] [place] [address] Physician Pattern Marking Supervisor Orthopedic Surgery 03/15/22
--- OUTSIDE RECORDS SUMMARY | 2025-02-08 14:12 | XMS_ITS | Clinical Summary ---
Author Organization [facility] B Address [address] [place] [address] Care Team Providers Care Curriculum Development Specialist Name Role Phone Cara Cordoba DO Primary Care Provider [phone] Don Avila Unavailable [phone] Allergies No known active allergies Medications clobetasoL [...] (05/17/2022): Added automatically from request for surgery [id number] Chronic hyponatremia 03/02/2022 Assessment & Plan (03/23/2024 [...] (02/23/2022): Added automatically from request for surgery [id number] Complex tear of medial menis cus of right knee as current injury 01/23/2018 Overview (01/23/2018): Added automatically from request for surgery [id number] Tear of medial meniscus of l eft knee, current, initial encounter 08/23/2017 Overview (08/23/2017): Added automatically from request for surgery [id number] Vitiligo 05/14/2017 Lentigo 02/28/2016 Referred otalgia 11/23/2011 Actinic keratosis 10/25/2010 Surgical History Surgery Date Site/Laterality Comments COLONOSCOPY [...] on file Legal Sex Male 4:55 AM PHILOSOPHY SPECIALIST Gender Identity Not on file Sexual Orientation Not on file 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 Not on file Not on file Not on fi le Obstetrics History Last Filed Vital Signs Vital Sign Reading Time Taken Comments Blood Pressure 137/96 07/10/2024 9:22 AM PHILOSOPHY SPECIALIST Pulse 92 07/10/2024 9:22 AM PHILOSOPHY SPECIALIST Temperature 36.6 C (97.9 F) 06/12/2022 3:00 PM PHILOSOPHY SPECIALIST Respiratory Rate 16 03/16/2024 9:29 AM CDT Oxygen Saturation 97% 06/12/2022 3:00 PM PHILOSOPHY SPECIALIST Inhaled Oxygen Concentration - - Weight 96.2 kg (212 lb) 07/10/2024 9:22 AM PHILOSOPHY SPECIALIST Height 167.6 cm (5' 6) 07/10/2024 9:22 AM PHILOSOPHY SPECIALIST Body Mass Index 34.22 07/10/2024 9:22 AM PHILOSOPHY SPECIALIST Plan of Treatment Health Maintenance Due Date Last Done Comments Colon Cancer Screening-Colonoscopy 1961 Hepatitis C Screening 1960 Prostate Cancer Screening-PSA 1961 Hepatitis B Screening 11/21/1979 Regular Well Visit/Exam 18-64 11/21/1979 DTaP/Tdap/Td Vaccine (1 - Tdap) 06/19/2003 06/18/2003 Zoster Vaccine (1 of 2) 11/21/2011 Covid-19 Vaccine ( season) 2024 11/02/2021, 05/10/2021, 09/26/2020, Additional history exists Influenza Vaccine (#1) 2025 , 03/17/2020, 04/22/2019, Additional history exists Depression Screening 03/16/2025 03/16/2024, 05/11/2022, 03/02/2022 Pneumococcal vaccine <65 Aged Out No longer eligible based on patient's age to complete this topic Medical Devices Implanted Type Area Marine Farmer Device Identifier Shelf Expiration Date Model / Serial / Lot Depuy [employer] Attune 5mm Cruciate Retaining Fix Bearing Knee 6 Insert Tibial [id number] - [id number] Implanted:Qty: 1 on 03/15/2022 by Luisito Gallardo MD at [facility] Left: Knee [employer] 08/07/2026 [id number] / / [id number] Dep[employer] Attune Fb Tib Base Sz 6 Por [id number] - [id number] Implanted:Qty: 1 on 03/15/2022 by Luisito Gallardo MD at [facility] Left: Knee [employer] 07/07/2031 [id number] / / [id number] Dep[employer] Attune Cruciate Retain Cementless Knee Left 6 Component Femoral [id number] - [id number] Implanted:Qty: 1 on 03/15/2022 by Luisito Gallardo MD at [facility] Left: Knee [employer] 03/07/2031 [id number] / / [id number] Dep[employer] Attune Cruciate Retain Cementless Knee Right 6 Component Femoral [id number] - [id number] Implanted:Qty: 1 on 06/12/2022 by Luisito Gallardo MD at [facility] Right: Knee [employer] [id number] 11/05/2031 [id number] / / [id number] [employer] Attune Fb Tib Base Sz 6 Por [id number] - [id number] Implanted:Qty: 1 on 06/12/2022 by Luisito Gallardo MD at [facility] Right: Knee [employer] [id number] 12/06/2031 [id number] / / [id number] Attune Knee System Tibial Insert Fixed Bearing Medial Stabilized Size 6 Right 6 Mm Aox Ref 1520-20-606 Implanted:Qty: 1 on 06/12/2022 by Luisito Gallardo MD at [facility] Right: Knee [employer] [id number] 01/05/2032 / / [id number] Insurance [facility] AETNA SIGNATURE [facility] [employer] Address: [address] [place] [address] [facility] [employer] Address: [facility] [address] [place] [address] Care Teams Curriculum Development Specialist Relationship Specialty Start Date End Date Cara Cordoba DO PCP - General Family Medicine 11/23/21 Don Avila PA [address] [place] [address] [address] [place] [address] Physician Final Rail Cutter Orthopedic Surgery 03/15/22
[2025-02-08 14:39] LABS: INR 1.1; Prothrombin Time 14.2 Seconds (11.1-14.7)
[2025-02-08 15:09] LABS: Hepatitis B Surface Antigen Negative (Negative)
[2025-02-08 15:15] LABS: HAV RESULT Negative (Negative); Hepatitis B Core IgM Result Negative (Negative)
[2025-02-08 15:16] LABS: Alanine Aminotransferase 32 U/L (6-50); Albumin Level 4.7 g/dL (3.5-5.1); Alkaline Phosphatase 63 U/L (38-126); Aspartate Amino Transferase 43 U/L (17-59); Bilirubin,Total 1.5 mg/dL (0.2-1.3); Total Protein 7.9 g/dL (6.3-8.2)
[2025-02-09 07:08] LABS: GGT 24 IU/L (0-65)
== END 2025-02-08 14:00 | disposition home or self-care (01) ==
PROVIDERS: PCP Family Medicine; Visit Provider Nurse Practitioner
DX: E80.6 Other disorders of bilirubin metabolism (principal); R14.0 Abdominal distension (gaseous)
CPT/HCPCS: 36415; 74018; 80074; 80076; 82977; 85610

== ENCOUNTER 2025-02-18 01:34 | Day surgery (SDC) | payer OTHER, SELFPAY ==
[2025-02-16 14:07] VITALS: BMI 33.0
[2025-02-18] VITALS (8 sets, daily range): BP systolic 88–136; BP diastolic 59–89; PULSE 40–52; RESP 14–18; TEMP 36.4; O2SAT 97–100
--- OUTSIDE RECORDS SUMMARY | 2025-02-18 01:37 | XMS_ITS | Continuity of Care Document ---
Author Organization [facility] Address [address] [place] [address] Phone Care Team Providers Care Press Operator Automatic Name Role Phone Vick Gallo MD Unavailable [...] Date Provider Providers Copied on Encounter [facility], [address], [id number], tel:[phone] [facility] No Information 5 Sabino Hickman. [address] [facility], [address], [id number] , [place]. tel:[phone] Office/outpat ient visit,[facility], [address], [id number], tel:[phone] [facility] JOINT PAIN-ANKLEAch illes bursitis or tendinitis 0 5 Sabino Hickman. [address] [facility], [address], [id number] , [place]. tel: [phone] Family History Family Member Type Diagnosis Age At Onset Father Problem (finding) malignant neoplasm of l jalyan Mother Problem (finding) malignant neoplasm of l jaylan Payers Payer name Insurance type Covered green party ID Authorfabio win(s) Uriel Blue Cross Blue Shiel d [place] BL [id number] Social History Type Description Quantity Date Captured [...]
--- OUTSIDE RECORDS SUMMARY | 2025-02-18 01:37 | XMS_ITS | Continuity of Care Document ---
Author Organization [employer] [place] Address [address] [place] [address] [address] [place] [address] Phone Care Team Providers Care [employer] Supervisor Name Role Phone Ca PT,MPT,ATC, Seferino Unavailable [...] Therapy PT Re-evaluation Therapeutic Activities Neuromuscular Re-Ed Manual Therapy Therapeutic Exercise Therapeutic Activities Neuromuscular Re-Ed Therapeutic Exercise Manual Therapy Therapeutic Activities Neuromuscular Re-Ed Therapeutic Exercise Manual Therapy Manual Therapy Therapeutic Exercise Neuromuscular Re-Ed Therapeutic Activities Therapeutic Activities Therapeutic Exercise Manual Therapy Therapeutic Activities Manual Therapy Therapeutic Exercise Therapeutic Activities Therapeutic Exercise Manual Therapy Therapeutic Activities Manual Therapy Therapeutic Exercise Therapeutic Activities Manual Therapy Therapeutic Exercise Therapeutic Activities Manual Therapy Therapeutic Exercise Therapeutic Activities Therapeutic Exercise Manual Therapy PT Evaluation Moderate Complexity Therapeutic Exercise Therapeutic Activities Therapeutic Activities Therapeutic Exercise Neuromuscular Re-Ed Neuromuscular Re-Ed Therapeutic Activities Manual Therapy Therapeutic Exercise Therapeutic Activities Neuromuscular Re-Ed Therapeutic Exercise Manual Therapy Neuromuscular Re-Ed Therapeutic Activities Manual Therapy Therapeutic Exercise Therapeutic Activities Neuromuscular Re-Ed Manual Therapy Therapeutic Exercise PT Evaluation Moderate Complexity Therapeutic Activities Therapeutic [...] Diagnoses Date Provider Providers Copied on Encounter [facility], [place], [place], [address], tel:[phone] [place] No Information 5 [place], [place], . Referring Provider: Earl Blankenship [address], [place], [address]. tel:[phone] [facility], [place], [place], [address], tel:[phone] [place] No Information 5 Corrie Rust. . Referring Provider: Earl Blankenship, [address], [place], [address]. tel:[phone] [facility], [place], [place], [address], [place] tel:[phone] [place] No Information 5 Corrie Rust. . Referring Provider: Earl Blankenship, [address], [place], [address]. tel:[phone] [facility], [place], [place], [address], [place] tel:[phone] [place] No Information 5 Ca Sef[place]. , [place], [place]. Referring Provider: Earl Blankenship, [address], [place], [address]. tel:[phone] [facility], [place], [place], [address], [place] tel:[phone] [place] No Information 4 Ca Sef[place]. , [place], [place]. Referring Provider: Access [employer]. [facility], [place], [place], [address], [place] tel:[phone] [place] No Information 4 Ca Sef[place]. , [place]. Referring Provider: [employer]. [facility], [place], [place], [address], [place] tel:[phone] [place] No Information 4 Ca Sef[place]. , [place]. Referring Provider: [employer]. [facility], [place], [place], [address], [place] tel:[phone] [place] No Information 4 Roby Samsonn. , [place]. Referring Provider: [employer]. [facility], [place], [place], [address], [place] tel:[phone] [place] No Information 4 Roby Samsonn. , [place]. Referring Provider: [employer]. [facility], [place], [place], [address], [place] tel:[phone] [place] No Information 3 Roby Borjas , [place], [place]. Referring Provider: Luisito Gallardo, [address] [facility] [address], [place], [address]. tel:[phone] [facility], [address], [place], [place], [address], [place] tel:[phone] [place] No Information 3 Roby Bor[place] , [place]. Referring Provider: Luisito Gallardo, [address] [facility] [address], [place], [address]. tel:[phone] [facility], [address], [place], [place], [address], [place] tel:[phone] [place] No Information 3 Roby [place] , [place]. Referring Provider: Luisito Gallardo, 4 [facility] [address] [facility] [address], [place], [address]. tel:[phone] [facility], [place], [place], [address], [place] tel:[phone] [place] No Information 3 Roby [place] , [place]. Referring Provider: Luisito Gallardo, 4 [facility] [address] [facility] [address], [place], [address]. tel:[phone] [facility], [place], [place], [address], [place] tel:[phone] [place] No Information 3 Roby [place] , [place]. Referring Provider: Luisito Gallardo, [address] [facility] [address], [place], [address]. tel:[phone] [facility], [place], [place], [address], [place] tel:[phone] [place] No Information 3 Roby [place] , [place]. Referring Provider: Luisito Gallardo, [address] [facility] [address], [place], [address]. tel:[phone] [facility], [address], [place], [place], [address], [place] tel:[phone] [place] No Information 0 3 Roby [place] , [place]. Referring Provider: Luisito Gallardo, 4 [facility] [address] [facility] [address], [place], [address]. tel:[phone] [facility], [address], [place], [place], [address], [place] tel:[phone] [place] No Information 0 3 Roby [place] , [place]. Referring Provider: Luisito Gallardo, 4 [facility] [address] [facility] [address], [place], [address]. tel:[phone] [facility], [address], [place], [place], [address], [place] tel:[phone] [place] No Information 0 3 Rowena Godinez. . Referring Provider: Luisito Gallardo, 4 [facility] [address] [facility] [address], [place], [address]. tel:[phone] [facility], [place], [place], [address], [place] tel:[phone] [place] No Information 0 3 Roby [place] , [place]. Referring Provider: Luisito Gallardo, 4 [facility] [address] [facility] [address], [place], [address]. tel:[phone] [facility], [address], [place], [place], [address], [place] tel:[phone] [place] No Information 3 Roby Bor[place] , [place]. Referring Provider: Luisito Gallardo, 4 [facility] [address] [facility] [address], [place], [address]. tel:[phone] [facility], [place], [place], [address], [place] tel:[phone] [place] No Information 3 Roby [place] , [place]. Referring Provider: Luisito Gallardo, 4 [facility] [address] [facility] [address], [place], [address]. tel:[phone] [facility], [address], [place], [place], [address], [place] tel:[phone] [place] No Information 3 Roby [place] , [place]. Referring Provider: Luisito Gallardo, 4 [facility] [address] [facility] [address], [place], [address]. tel:[phone] [facility], [address], [place], [place], [address], [place] tel:[phone] [place] No Information 3 Roby [place] , [place]. Referring Provider: Luisito Gallardo, 4 [facility] [address] [facility] [address], [place], [address]. tel:[phone] [facility], [address], [place], [place], [address], [place] tel:[phone] [place] No Information 3 Roby [place] , [place]. Referring Provider: Luisito Gallardo, 4 [facility] [address] [facility] [address], [place], [address]. tel:[phone] [facility] [address], [place], [place], [address], [place] tel:[phone] [place] No Information 3 Rowena Godinez. . Referring Provider: Luisito Gallardo, 4 [facility] [address] [facility] [address], [place], [address]. tel:[phone] [facility], [place], [place], [address], [place] tel:[phone] [place] No Information 3 Rowena Godinez. . Referring Provider: Luisito Gallardo, 4 [facility] [address], [place], [address]. tel:[phone] [facility], [address], [place], [place], [address], [place] tel:[phone] [place] No Information 3 [place], . Referring Provider: Luisito Gallardo, 4 [facility] [address] [facility] [address], [place], [address]. tel:[phone] [facility], [address], [place], [place], [address], [place] tel:[phone] [place] No Information 2 Keithn Herbert. . Referring Provider: Luisito Gallardo, 4 [facility] [address] [facility] [address], [place], [address]. tel:[phone] [facility], [address], [place], [place], [address], [place] tel:[phone] [place] No Information 2 Keithn Herbert. . Referring Provider: Luisito Gallardo, 4 [facility] [address] [facility] [address], [place], [address]. tel:[phone] [facility], [place], [place], [address], [place] tel:[phone] [place] No Information 2 Rowena Godinez. . Referring Provider: Luisito Gallardo, 4 [facility] [address] [facility] [address], [place], [address]. tel:[phone] [facility], [address], [place], [place], [address], [place] tel:[phone] [place] No Information 2 Keithn Herbert. . Referring Provider: Luisito Gallardo, 4 [facility] [address] [facility] [address], [place], [address]. tel:[phone] [facility], [place], [place], [address], [place] tel:[phone] [place] No Information Jun- 2 Klahn Herbert. . Referring Provider: Luisito Gallardo, 4 [facility] [address], [place], [address]. tel:[phone] [facility], [address], [place], [place], [address], [place] tel:[phone] [place] No Information Jun- 2 Maria Fernanda Rosen. [address] [facility], [address], [place], [address], [place]. tel:[phone] Referring Provider: Luisito Gallardo, 4 [facility] [address], [place], [address]. tel:[phone] [facility], [address], [place], [place], [address], [place] tel:[phone] [place] No Information 3 2 Klahn Herbert. . Referring Provider: Luisito Gallardo, 4 [facility] [address], [place], [address]. tel:[phone] [facility], [address], [place], [place], [address], [place] tel:[phone] [place] No Information 2 Klahn Herbert. . Referring Provider: Luisito Gallardo, 4 [facility] [address] [facility] [address], [place], [address]. tel:[phone] [facility], [place], [place], [address], [place] tel:[phone] [place] No Information Nov-2 2 Klahn Herbert. . Referring Provider: Luisito Gallardo, 4 [facility] [address], [place], [address]. tel:[phone] [facility], [address], [place], [place], [address], [place] tel:[phone] [place] No Information Nov-2 2 Klahn Herbert. . Referring Provider: Luisito Gallardo, [address] [facility] [address], [place], [address]. tel:[phone] [facility], [address], [place], [place], [address], [place] tel:[phone] [place] No Information 2 Roby Gentile. , [place]. Referring Provider: Luisito Gallardo, [address] [facility] [address], [place], [address]. tel:[phone] [facility], [address], [place], [place], [address], [place] tel:[phone] [place] No Information 2 Roby Gent[place]. , [place]. Referring Provider: Luisito Gallardo, 4 [facility] [address], [place], [address]. tel:[phone] [facility], [address], [place], [place], [address], [place] tel:[phone] [place] No Information Nov-0 2 Roby Gentile. , [place]. Referring Provider: Luisito Gallardo, [address] [facility] [address], [place], [address]. tel:[phone] [facility], [address], [place], [place], [address], [place] tel:[phone] [place] No Information Nov0 2 Roby Samsonn. , [place]. Referring Provider: Luisito Gallardo, [address] [facility] [address], [place], [address]. tel:[phone] [facility], [address], [place], [place], [address], [place] tel:[phone] [place] No Information Nov-0 2 Roby Gentile. , [place]. Referring Provider: Luisito Gallardo, [address] [facility] [address], [place], [address]. tel:[phone] [facility], [address], [place], [place], [address], [place] tel:[phone] [place] No Information 2 Roby Gent[place]. , [place]. Referring Provider: Luisito Gallardo, 4 [facility] [address] [facility] [address], [place], [address]. tel:[phone] [facility], [place], [place], [address], [place] tel:[phone] [place] No Information 2 Roby Gentile. , [place]. Referring Provider: Luisito Gallardo, 4 [facility] [address] [facility] [address], [place], [address]. tel:[phone] [place] [address], [address], [place], [place], [address], [place] tel:[phone] [place] No Information 2 Roby Gentile. , [place]. Referring Provider: Luisito Gallardo, 4 [facility] [address] [facility] [address], [place], [address]. tel:[phone] [facility], [address], [place], [place], [address], [place] tel:[phone] [place] No Information 2 Roby Gentile. , [place]. Referring Provider: Luisito Gallardo, 4 [facility] [address] [facility] [address], [place], [address]. tel:[phone] [facility], [place], [place], [address], [place] tel:[phone] [place] No Information 2 Roby Gent[place]. , [place]. Referring Provider: Luisito Gallardo, [address] [facility] [address], [place], [address]. tel:[phone] [facility], [address], [place], [place], [address], [place] tel:[phone] [place] No Information Apr-07 09- 2 Ca Sefer[place]. , [place]. Referring Provider: Luisito Gallardo, 4 [facility] [address] [facility] [address], [place], [address]. tel:[phone] [facility], [address], [place], [place], [address], [place] tel:[phone] [place] No Information Oct-1 0 2 Ca Sef[place]. , [place]. Referring Provider: Luisito Gallardo, 4 [facility] [address] [facility] [address], [place], [address]. tel:[phone] [facility] [address], [place], [place], [address], [place] tel:[phone] [place] No Information Oct-0 2 [facility] [place]. Referring Provider: Luisito Gallardo, 4 [facility] [address] [facility] [address], [place], [address]. tel:[phone] [facility], [address], [place], [place], [address], [place] tel:[phone] [place] No Information Oct-0 2 [facility] , [place]. Referring Provider: Luisito Gallardo, 4 [facility] [address] [facility] [address], [place], [address]. tel:[phone] [facility] [address], [place], [place], [address], [place] tel:[phone] [place] No Information Sep-2 2 [facility] , [place]. Referring Provider: Luisito Gallardo, 4 [facility] [address] [facility] [address], [place], [address]. tel:[phone] [facility] [address], [place], [place], [address], [place] tel:[phone] [place] No Information Sep-2 2 [facility] , [place]. Referring Provider: Luisito Gallardo, 4 [facility] [address] [facility] [address], [place], [address]. tel:[phone] [facility], [address], [place], [place], [address], [place] tel:[phone] [place] No Information Sep-2 2 Rowena Godinez. . Referring Provider: Luisito Gallardo, [address] [facility] [address], [place], [address]. tel:[phone] [facility], [address], [place], [place], [address], [place] tel:[phone] [place] No Information Sep-1 2 Rowena Godinez. . Referring Provider: Luisito Gallardo, [address] [facility] [address] [facility] [address], [place], [address]. tel:[phone] [facility], [address], [place], [place], [address], [place] tel:[phone] [place] No Information Sep- 2 Rowena Godinez. . Referring Provider: Luisito Gallardo, 4 [facility] [address], [place], [address]. tel:[phone] [facility], [place], [place], [address], [place] tel:[phone] [place] No Information Benny-3 2 [place], [place], [place]. Referring Provider: Vick Quiñones, [facility] [facility], [place], [address]. tel:[phone] [facility], [address], [place], [place], [address], [place] tel:[phone] [place] No Information Dec-2 2 [place] Referring Provider: Vick Quiñones, [address] [facility], [place], [address]. tel:[phone] [facility], [address], [place], [place], [address], [place] tel:[phone] [place] No Information 2 Ca Sef[place]. , [place]. Referring Provider: Vick Quiñones, [address] [facility] [facility] [address], [place], [address]. tel:[phone] [facility], [place], [place], [address], [place] tel:[phone] [place] No Information 2 Ca Sef[place]. , [place]. Referring Provider: Vick Quiñones, [address], [place], [address]. tel:[phone] [facility], [address], [place], [place], [address], [place] tel:[phone] [place] No Information 2 Ca Sefer[place]. , [place]. Referring Provider: Vick Quiñones, [address], [place], [address]. tel:[phone] [facility], [place], [place], [address], [place] tel:[phone] [place] No Information 2 Ca Sef[place]. , [place]. Referring Provider: Vick Quiñones, [address], [place], [address]. tel:[phone] [facility], [place], [place], [address], [place] tel:[phone] [place] Pain in right kneeStiffness of right knee, not elsewhere classifiedOth symptoms and signs involving the musculoskelet al systemOther abnormalities of gait and mobilityOther specified postprocedura l states 0 8 Ca Sefer[place]. , [place]. [facility], [place], [place], [address], [place] tel:[phone] [place] Pain in right kneeStiffness of right knee, not elsewhere classifiedOth symptoms and signs involving the musculoskelet al systemOther abnormalities of gait and mobilityOther specified postprocedura l states 8 Ca Sefer[place]. , [place]. [facility], [place], [place], [address], [place] tel:[phone] [place] Pain in right kneeStiffness of right knee, not elsewhere classifiedOth symptoms and signs involving the musculoskelet al systemOther abnormalities of gait and mobilityOther specified postprocedura l states 8 Roby Borjas [place]. [facility], [place], [place], [address], [place] tel:[phone] [place] Pain in right kneeStiffness of right knee, not elsewhere classifiedOth symptoms and signs involving the musculoskelet al systemOther abnormalities of gait and mobilityOther specified postprocedura l states 8 Beatriz Roger. . [facility], [place], [place], [address], [place] tel:[phone] [place] Pain in right kneeStiffness of right knee, not elsewhere classifiedOth symptoms and signs involving the musculoskelet al systemOther abnormalities of gait and mobilityOther specified postprocedura l states 8 Roby Gentile. , [place]. [facility], [place], [place], [address], [place] tel:[phone] [place] Pain in right kneeStiffness of right knee, not elsewhere classifiedOth symptoms and signs involving the musculoskelet al systemOther abnormalities of gait and mobilityOther specified postprocedura l states 8 Roby Gentile. , [place]. [facility], [place], [place], [address], [place] tel:[phone] [place] Pain in right kneeStiffness of right knee, not elsewhere classifiedOth symptoms and signs involving the musculoskelet al systemOther abnormalities of gait and mobilityOther specified postprocedura l states 8 Roby Borjas , [place]. [facility], [place], [place], [address], [place] tel:[phone] [place] Pain in right kneeStiffness of right knee, not elsewhere classifiedOth symptoms and signs involving the musculoskelet al systemOther abnormalities of gait and mobilityOther specified postprocedura l states 0 8 Threlkeld Rema. . [facility], [place], [place], [address], tel:[phone] [place] Encounter for other specified aftercareUnsp tear of unsp meniscus, current injury, left knee, subsPain in left knee 8 [place]. [facility], [place], [place], [address], tel:[phone] [place] No Information 7 [place], . Referring Provider: Physician Screen. [facility], [place], [place], [address], tel:[phone] [place] No Diagnosis 7 [place], . Referring Provider: Physician Screen. Family History Family Member Type Diagnosis Age At Onset No Information Payers Payer name Insurance type Covered green party ID Authoriza tion(s) No Information Social History [...]
--- OUTSIDE RECORDS SUMMARY | 2025-02-18 01:37 | XMS_ITS | Clinical Summary ---
[facility] Address [address] [place] [address] Care Team Providers Care Master Cosmetologist Name Role Phone Cara Cordoba DO Primary Care Provider [phone] Don Avila Unavailable Allergies No known active allergies Medications clobetasoL [...] (05/17/2022): Added automatically from request for surgery [id number] Chronic hyponatremia 03/02/2022 Assessment & Plan (03/23/2024 [...] (02/23/2022): Added automatically from request for surgery [id number] Complex tear of medial menis cus of right knee as current injury 01/23/2018 Overview (01/23/2018): Added automatically from request for surgery [id number] Tear of medial meniscus of l eft knee, current, initial encounter 08/23/2017 Overview (08/23/2017): Added automatically from request for surgery [id number] Vitiligo 05/14/2017 Lentigo 02/28/2016 Referred otalgia 11/23/2011 [...] on file Legal Sex Male 4:55 AM CARGO MATE Gender Identity Not on file Sexual Orientation Not on file 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 Not on file Not on fi le Obstetrics History Last Filed Vital Signs Vital Sign Reading Time Taken Comments Blood Pressure 137/96 07/10/2024 9:22 AM CARGO MATE Pulse 92 07/10/2024 9:22 AM CARGO MATE Temperature 36.6 C (97.9 F) 06/12/2022 3:00 PM CARGO MATE Respiratory Rate 16 03/16/2024 9:29 AM CDT Oxygen Saturation 97% 06/12/2022 3:00 PM CARGO MATE Inhaled Oxygen Concentration - - Weight 96.2 kg (212 lb) 07/10/2024 9:22 AM CARGO MATE Height 167.6 cm (5' 6) 07/10/2024 9:22 AM CARGO MATE Body Mass Index 34.22 07/10/2024 9:22 AM CARGO MATE Plan of Treatment Health Maintenance Due Date [...] this topic Medical Devices Implanted Type Area Gospel Singer Device Identifier Shelf Expiration Date Model / Serial / Lot [employer] Attune 5mm Cruciate Retaining Fix Bearing Knee 6 Insert Tibial [id number] - [id number] Implanted:Qty: 1 on 03/15/2022 by Luisito Gallardo MD at [facility] Left: Knee [employer] 08/07/2026 [id number] / / [id number] [employer] Attune Fb Tib Base Sz 6 Por [id number] - [id number] Implanted:Qty: 1 on 03/15/2022 by Luisito Gallardo MD at [facility] Left: Knee [employer] 07/07/2031 [id number] / / [id number] [employer] Attune Cruciate Retain Cementless Knee Left 6 Component Femoral [id number] - [id number] Implanted:Qty: 1 on 03/15/2022 by Luisito Gallardo MD at [facility] Left: Knee [employer] 03/07/2031 [id number] / / [id number] [employer] Attune Cruciate Retain Cementless Knee Right 6 Component Femoral [id number] - [id number] Implanted:Qty: 1 on 06/12/2022 by Luisito Gallardo MD at [facility] Right: Knee [employer] [id number] 11/05/2031 [id number] / / [id number] [employer] Attune Fb Tib Base Sz 6 Por [id number] - [id number] Implanted:Qty: 1 on 06/12/2022 by Luisito Gallardo MD at [facility] Right: Knee [employer] [id number] 12/06/2031 [id number] / / [id number] Attune Knee System Tibial Insert Fixed Bearing Medial Stabilized Size 6 Right 6 Mm Aox Ref [id number] Implanted:Qty: 1 on 06/12/2022 by Luisito Gallardo MD at [facility] Right: Knee [employer] [id number] 01/05/2032 / / [id number] Insurance [facility] Care Teams Master Cosmetologist Relationship Specialty Start Date End Date Cara Cordoba DO PCP - General Family Medicine 11/23/21 Don Avila PA [address] [place] [address] [address], [place] [address] Physician [place] Consultant Orthopedic Surgery 03/15/22
--- NOTE | 2025-02-18 10:20 | P.PNAN_ITS ---
Anes - Initial Pre Proc Eval Procedure: Operation Date: 02/18/25 11:30 Proposed Procedures p EGD & Diagnostic Colonoscopy - Eyal Dai MD Date/Time: 02/18/25 10:20 Surgeon: Eyal Dai MD Pre Op Diagnosis: Early satiety, Foreign body sensation, throat Patient Data Age: 64 Gender: M Height: 1.68 m Weight: 93 kg Allergies Allergy/AdvReac Type Severity Reaction Status Date / Time No Known Drug Allergies Allergy Unknown Unknown Verified 02/18/25 10:16 Home Medications ?Medication ?Instructions ?Recorded ?Confirmed ?Type latanoprost 0.005 % eye drops 1 drp EACH EYE DAILY 04/20/24 02/18/25 History amlodipine 5 mg tablet See Rx Instructions .Route 10/01/24 02/18/25 Rx .COMPLEX #90 tabs timolol 0.5 % eye drops 1 drp EACH EYE Q12H 11/04/24 02/18/25 History atorvastatin 10 mg tablet See Rx Instructions .Route 12/29/24 02/18/25 Rx .COMPLEX #90 tabs lisinopril 40 mg tablet See Rx Instructions .Route 12/29/24 02/18/25 Rx .COMPLEX #90 tabs docusate sodium 100 mg capsule 100 mg PO DAILY 02/16/25 02/16/25 History (Colace) polyethylene glycol 3350 17 gram 17 g PO BID 02/16/25 02/16/25 History oral powder packet (Miralax) Patient hx anesthesia problems: none Family hx anesthesia problems: none Results Review: All pre-operative results and documents have been reviewed as part of the pre- operative evaluation. [facility] Past Medical History Medical History Hepatitis C antibody test negative (12/27/16) Hyperlipidemia Essential (primary) hypertension Surgical History Surgical History Total knee replacement status H/O colonoscopy (~12/2011) Family History Family History Mother Family history of lung cancer Patient's mother is , Onset Age: 58 Father Family history of congestive heart failure Family history of cardiovascular disease Social History Social History (Reviewed 02/08/25 @ 12:56 by WENDY Li Social History: Caffeine-Coffee Smoking packs per day: 1 Smoking cigarettes per day: 20.0 Years smoked: 5 Smoking pack-years: 5.00 Smoking status: Never smoker Tobacco type: cigarettes Smoking end date: 07/08/86 Alcohol intake: current Drinks per week: 20 Substance use: current Substance use type: marijuana Other substance usage details: edibles and smoking daily Do You Feel Safe in your Home?: Yes Lack of Transportation: No Lack of Food: Never True Current Housing: I Have Housing Concerned About Future Housing: No Difficulty Paying Gas/Electric Bills: No Difficulty Paying for Meds: No Currently Unemployed: No Education: Master's Degree or Higher Living arrangements: with family Spiritual care concerns: No Anes - Eval Final PreProcedure Day of Procedure 02/18/25 10:20 Patient weight: obese Heart: regular rate and rhythm Lungs: clear to auscultation Airway: Mallampati scale class III Neurological: alert and oriented Last oral intake: >/= 8 hours ASA classification: III Emergent: no Anesthetic plan: proceed Anesthesia type and monitoring: general GIVS and standard monitoring Results Review: All pre-operative results and documents have been reviewed as part of the pre- operative evaluation. Informed Consent: The patient's anesthetic plan and its attendant risks and benefits were discussed with the patient/family/POA. Questions were solicited and answers provided to the satisfaction of the patient/family/POA.
[2025-02-18] MEDS: SIMETHICONE ORAL SUSPENSION 20 MG/0.3 ML 30 ML BOTTLE 1.8 ML PO (10:24)
[2025-02-18] MEDS: LACTATED RINGERS 1,000 ML 150 ML IV CONT (10:30)
--- NOTE | 2025-02-18 10:30 | P.HP_ITS ---
H&P: HPI History of Present Illness Date/Time: 02/18/25 10:30 Chief Complaint: Change in bowel habits- weight loss -bloating Narrative: the patient has chronic intermittent symptoms of abdominal bloating and disc omfort, associated with fluctuating between diarrhea and constipation. He had an unintended weight loss of 14 lb. He is now referred for colonoscopy and EGD. Review of Systems Review of Systems: All systems reviewed & are unremarkable except as noted in HPI and below PMFSH Past Medical History Medical History Hepatitis C antibody test negative (12/27/16) Hyperlipidemia Essential (primary) hypertension Surgical History Surgical History Total knee replacement status H/O colonoscopy (~12/2011) Family History Family History Mother Family history of lung cancer Patient's mother is , Onset Age: 58 Father Family history of congestive heart failure Family history of cardiovascular disease Social History Social History Social History: Caffeine-Coffee Smoking packs per day: 1 Smoking cigarettes per day: 20.0 Years smoked: 5 Smoking pack-years: 5.00 Smoking status: Never smoker Tobacco type: cigarettes Smoking end date: 07/08/86 Alcohol intake: current Drinks per week: 20 Substance use: current Substance use type: marijuana Other substance usage details: edibles and smoking daily Do You Feel Safe in your Home?: Yes Lack of Transportation: No Lack of Food: Never True Current Housing: I Have Housing Concerned About Future Housing: No Difficulty Paying Gas/Electric Bills: No Difficulty Paying for Meds: No Currently Unemployed: No Education: Master's Degree or Higher Living arrangements: with family Spiritual care concerns: No Meds Home Medications and Allergies Home Medications ?Medication ?Instructions ?Recorded ?Confirmed ?Type latanoprost 0.005 % eye drops 1 drp EACH EYE DAILY 04/20/24 02/18/25 History amlodipine 5 mg tablet See Rx Instructions .Route 10/01/24 02/18/25 Rx .COMPLEX #90 tabs timolol 0.5 % eye drops 1 drp EACH EYE Q12H 11/04/24 02/18/25 History atorvastatin 10 mg tablet See Rx Instructions .Route 12/29/24 02/18/25 Rx .COMPLEX #90 tabs lisinopril 40 mg tablet See Rx Instructions .Route 12/29/24 02/18/25 Rx .COMPLEX #90 tabs docusate sodium 100 mg capsule 100 mg PO DAILY 02/16/25 02/16/25 History (Colace) polyethylene glycol 3350 17 gram 17 g PO BID 02/16/25 02/16/25 History oral powder packet (Miralax) Allergies Allergy/AdvReac Type Severity Reaction Status Date / Time No Known Drug Allergies Allergy Unknown Unknown Verified 02/18/25 10:16 Vital Signs Vital Signs - 24 hr 02/18/25 10:18 Temperature 97.6 F Pulse Rate 51 L Respiratory Rate 16 Blood Pressure 136/86 Pulse Oximetry 100 Oxygen Delivery Room Air Exam Const: General: cooperative and healthy appearing Resp: Effort & Inspection: normal respiratory effort and able to speak in complete sentences Auscultation: clear to auscultation bilaterally Cardio: Rate: regular rate Rhythm: regular rhythm GI: Inspection: normal to inspection GI Palp: No No hepatosplenomegaly present Auscultation: normal bowel sounds Rectal Exam: deferred Skin: General skin exam: normal color Psych: Appearance: grossly normal Mental Status: mental status grossly normal Assessment and Plan Assessment and plan (1) Change in bowel habit: Code(s): R19.4 - Change in bowel habit Status: Acute Assessment and Plan: The patient is deemed a good candidate for the procedures. Consent signed. Will proceed. (2) Weight loss: Code(s): R63.4 - Abnormal weight loss Status: Acute
--- NOTE | 2025-02-18 10:51 | SUR.OPER ---
EGD ended at 1048. Colonoscopy started at 1052.
--- NOTE | 2025-02-18 10:56 | S_PTH ---
PATIENT: Giovani Seo LOC: [facility] U#:[id number] AGE/SX: 64/M ROOM: RE02/18/[address]: Eyal Dai MD : 1960 BED: DIS: 02/18/2025 SPEC #: [id number] RECD: 02/18/25 13:25 STATUS: SHAW REQ #: [id number] YI: 02/18/25 10:[address]: Eyal Dai DEPT: [facility] RECD BY: Dana Abernathy ENTERED: 02/18/25 13:26 SP TYPE: Surgical OTHR DR: Cara Cordoba DO Tissues: A - Gastric Biopsy B - Gastric Biopsy C - Colon Polypectomy Procedures: Hematoxylin and Eosin Stain Gross and Microscopic Level 4
--- NOTE | 2025-02-18 11:35 | SUR.PHASEII ---
Addendum entered by Mi Ahn RN 02/18/25 11:54: Pt remains bradycardic after Robinul. Dr. Pearl notified states he will give another dose of Robinul. Original Note: Pt heart rate bradycardic, pt asymptomatic. Dr. Pearl (anesthesiologist) notified and bedside. Robinul given by anesthesiologist at this time
[2025-02-18] MEDS: GLYCOPYRROLATE INJ (*SP) 0.2 MG/ML VIAL IV PUSH ×2 (11:40→11:56)
--- NOTE | 2025-02-18 12:12 | SUR.PHASEII ---
Heart rate back to baseline, pt continues to be asymptomatic. Ok to discharge per Dr. Flannery.
== END 2025-02-18 12:14 | disposition home or self-care (01) ==
PROVIDERS: PCP Family Medicine; Referring Provider Nurse Practitioner; Visit Provider Internal Medicine Gastroenterology
PROC: 0DJ08ZZ Inspection of Upper Intestinal Tract, Via Natural or Artificial Opening Endoscopic (ICD-10-PCS; CPT 45378; principal; 2025-02-18 11:30)
DX: K63.5 Polyp of colon (principal); K57.30 Diverticulosis of large intestine without perforation or abscess without bleeding; K29.30 Chronic superficial gastritis without bleeding; K21.9 Gastro-esophageal reflux disease without esophagitis; E78.5 Hyperlipidemia, unspecified; I10 Essential (primary) hypertension; F12.90 Cannabis use, unspecified, uncomplicated; F17.210 Nicotine dependence, cigarettes, uncomplicated; E66.9 Obesity, unspecified; Z68.32 Body mass index [BMI] 32.0-32.9, adult; Z98.890 Other specified postprocedural states; Z80.1 Family history of malignant neoplasm of trachea, bronchus and lung; Z82.49 Family history of ischemic heart disease and other diseases of the circulatory system
CPT/HCPCS: 43239; 45385; 88305; J1596; J2003; J2704; J7120

== ENCOUNTER 2025-05-05 08:34 | Outpatient (CLI) | payer OTHER, SELFPAY ==
[2025-05-05 13:20] LABS: Alanine Aminotransferase 27 U/L (6-50); Albumin Level 4.8 g/dL (3.5-5.1); Alkaline Phosphatase 75 U/L (38-126); Anion Gap 10 mmol/L (4-12); Aspartate Amino Transferase 50 U/L (17-59); Bilirubin,Total 2.2 mg/dL (0.2-1.3); Blood Urea Nitrogen 23 mg/dL (9-20); Calcium 9.4 mg/dL (8.4-10.2); Carbon Dioxide 27 mmol/L (22-30); Chloride 98 mmol/L (98-107); Cholesterol 159 mg/dL (0-200); Estimated Glomerular Filt Rate > 60; Glucose 83 mg/dL (65-110); HDL Direct 47 mg/dL; Potassium 4.7 mmol/L (3.4-5.0); Sodium 135 mmol/L (137-145); Total Protein 8.3 g/dL (6.3-8.2); Triglycerides 84 mg/dL (<150)
[2025-05-05 13:21] LABS: Hematocrit 39.5 % (42.0-52.0); Hemoglobin 14.2 g/dL (14.0-18.0); Mean Corpuscular HGB Conc 35.9 g/dl (32-36); Mean Corpuscular Hemoglobin 35.1 pg (26-34); Mean Corpuscular Volume 97.5 fl (80-100); Platelet Count Result 213 k/mm3 (150-375); Red Blood Count 4.05 M/mm3 (4.6-6.20); White Blood Count 7.2 K/mm3 (4.5-10.0)
[2025-05-05 13:25] LABS: Iron 72 ug/dL (49-181)
[2025-05-05 13:48] LABS: Percent Iron Saturation 27 % (20-50)
[2025-05-05 14:02] LABS: Prostate Specific Antigen 1.0 ng/mL (< OR = 4.0); Thyroid Stimulating Hormone 2.510 uIU/mL (0.465-4.680)
[2025-05-05 14:09] LABS: Ferritin 264.00 ng/mL (11.1-264)
[2025-05-05 14:37] LABS: Vitamin B12 485.0 pg/mL (239-931)
== END 2025-05-05 08:35 | disposition home or self-care (01) ==
LOC: ANHGOSHLAB 08:34
PROVIDERS: PCP Family Medicine; Visit Provider Family Medicine
DX: D64.9 Anemia, unspecified (principal); Z79.899 Other long term (current) drug therapy; I10 Essential (primary) hypertension; E78.00 Pure hypercholesterolemia, unspecified; E66.9 Obesity, unspecified; Z68.35 Body mass index [BMI] 35.0-35.9, adult; Z12.5 Encounter for screening for malignant neoplasm of prostate
CPT/HCPCS: 36415; 80053; 80061; 82607; 82728; 82746; 83540; 83550; 84153; 84443; 85027; G0103

== ENCOUNTER 2025-05-26 07:45 | Outpatient (CLI) | payer OTHER, SELFPAY ==
--- NOTE | ~2025-05-26 | NM_ITS ---
EXAM: NM gastric emptying study DATE: 05/26/2025 12:48 INDICATION: Bloating. Early satiety. TECHNIQUE: A gastric emptying study was performed using the methodology of Bella HUMPHREY, et al. J Nucl Med 2007; 48:568-572. The patient was given a meal consisting of 2 scrambled eggs labeled with mCi Tc-99m sulfur colloid, 2 slices of toast, two packages of jam, and approximately 120 mL of water. Simultaneous anterior and posterior 1-min images of the abdomen were obtained with the patient supine at multiple time points over a total period of 4 hours. The geometric mean of anterior and posterior views was determined, and the percentage retention was calculated for each time point. COMPARISON: None. FINDINGS: Gastric retention of the radiotracer-labeled meal was 50%, 33%, and 8% at the 1- hour, 2-hour, and 4-hour time points, respectively. With this technique, apparent rapid gastric emptying is suggested by <30% gastric retention at 1 hour. Delayed gastric emptying is defined by gastric retention of >90% at 1 hour, >60% retention at 2 hours, or >10% retention at 4 hours. IMPRESSION: 1. Normal gastric emptying. Reviewed, dictated and finalized at location A. MA EDUCATOR IMPRESSION: 1. Normal gastric emptying.
== END 2025-05-26 07:46 | disposition home or self-care (01) ==
PROVIDERS: PCP Family Medicine; Visit Provider Nurse Practitioner
DX: R14.0 Abdominal distension (gaseous) (principal); K30 Functional dyspepsia
CPT/HCPCS: 78264; A9541